=== PATIENT | female | born 1940 | race African-American/Black ===

== ENCOUNTER 2018-01-18 21:16 | Inpatient (IN) | payer MEDICARE ==
[~2018-01-18 21:16] MED LIST: ISOVUE-370 76%-LOCM 1 ML ONE
[2018-01-18 22:32] LABS: #Lymphocytes 1.2 thou/uL (1.20-3.40); #Monocytes 0.9 thou/uL (0.11-0.59); #Neutrophils 7.9 thou/uL (1.40-6.50); %Eosinophils 0.2 % (0.0-10.0); %Lymphocytes 11.9 % (21.0-51.0); %Monocytes 9.1 % (0.0-10.0); %Neutrophils 78.8 % (42.0-75.0); Hemoglobin 14.3 g/dL (12.0-16.0); Mean Corpuscular HGB CONC 31.7 g/dL (32.0-36.0); Mean Corpuscular Hemoglobin 31.8 pg (27.0-31.0); Mean Platelet Volume 6.2 fL (7.4-10.4); Platelet Count 317 thou/uL (130-400); RBC Distribution Width 13.8 % (11.5-14.5); Red Blood Cell (RBC) Count 4.52 mill/uL (4.20-5.40); White Blood Cell (WBC) Count 10.1 thou/uL (4.8-10.8)
--- NOTE | 2018-01-18 22:39 | RAD ---
FRONTAL VIEW CHEST: Comparison: 01-10-16 History: Abdominal pain. FINDINGS: Prominence of cardiac silhouette and evidence of prior sternotomy again seen. Left sided pacing devic e remains in place. There is vascular calcification. No new consolidation or effusion. IMPRESSION: Stable chest. POS: [facility]
[2018-01-18 23:00] LABS: ALT (SGPT) 17 U/L (8-55); AST (SGOT) 17 U/L (5-34); Albumin 2.6 g/dL (3.4-4.8); Alkaline Phosphatase 87 U/L (40-150); BUN (Urea Nitrogen) 16 mg/dL (9.8-20.1); Bilirubin, Total 0.5 mg/dL (0.2-1.2); Calc. Creatinine Clearance 0 mL/min (70-130); Carbon Dioxide 26 mmol/L (23-31); Chloride 97 mmol/L (98-107); Estimated GFR-MDRD 6; Globulin 3.6 g/dL (2.4-3.5); Glucose 69 mg/dL (83-110); Lipase 39 U/L (8-78); Magnesium 1.1 mg/dL (1.6-2.6); Phosphorus 3.3 mg/dL (2.3-4.7); Protein, Total 6.2 g/dL (6.0-8.3); Sodium 137 mmol/L (136-145)
[2018-01-18 23:13] LABS: Anion Gap 17 mmol/L (10-20)
--- NOTE | 2018-01-18 23:58 | CT ---
CT ABDOMEN AND PELVIS WITH CONTRAST: Indication: Abdominal pain. Comparison: 01-07-15 FINDINGS: There is a peritoneal dialysis catheter in place with evidence of intraabdominal fluid and punctate a ir which may relate to the indwelling dialysis catheter. There is wall thickening of the esophagus at its visualized aspects. There is wall prominence of the right hemicolon which is moderately distende d and contains fecal material. Loops of ectatic small bowel are present. Air and fluid filled. No foc al hepatic or splenic lesion. The kidneys are atrophic with cyst formation. No adrenal mass. Punctate cyst formation at the pancreatic head/uncinate process region is grossly stable. Scattered vascular disease is present. No acute osseous abnormality. IMPRESSION: 1. Peritoneal dialysis catheter. There is mild ascites as well as punctate intraabdominal air which m ay relate to the indwelling catheter and associated treatments. Correlate clinically. 2. Wall prominence of the visualized esophagus as well as involving the moderately distended right he micolon. These findings could relate to an infectious or inflammatory etiology. The possibility of ne oplasm is not excluded. 3. Recommend appropriate flow up via endoscopic evaluation. 4. Nonspecific ectatic small bowel. POS: [facility]
[2018-01-19] MEDS ORDERED: Acetaminophen 325 MG TAB PO PRN (04:19)
[2018-01-19] MEDS ORDERED: Ondansetron ODT 4 MG TAB SL PRN (04:19)
[2018-01-19] MEDS ORDERED: Ondansetron HCl/PF 4 MG/2 ML Vial IVP PRN (04:19)
[2018-01-19] MEDS ORDERED: Gentamicin Sulfate 80 MG in Premix Bag 1 BAG IVPB SCH (04:30)
[2018-01-19] MEDS ORDERED: Vancomycin HCl 1 GM in Premix Bag 1 BAG IVPB SCH (04:30)
[2018-01-19] MEDS ORDERED: HYDROcodone/Acetaminophen 5/325 mg Tablet PO PRN (05:12)
[2018-01-19] MEDS ORDERED: hydrALAZINE 25 MG TAB PO PRN (05:12)
--- NOTE | 2018-01-19 06:35 | HP ---
PRIMARY CARE PHYSICIAN: Dr. Guerrier CHIEF COMPLAINT: Abdominal pain. HISTORY OF PRESENT ILLNESS: Ms. Talley is a pleasant 77-year-old female that has a history of end-st age renal disease on peritoneal dialysis. She also has a history of hypertension and coronary artery disease. She was in her usual state of health until about 3 weeks ago when she started having pain in her abdomen, which had been more or less intermittent. She also has been having chills off and on as well. She also notes off and on nausea, vomiting, and diarrhea and sometimes she will have up to 2-3 loose stools in a day. She noticed yesterday that the fluid from the dialysate was cloudy and f or this reason she was concerned. She called the PD nurse and they recommended that she come to the ER for evaluation. In the ER, she had a CT scan done which was essentially negative except for some prominence of the esophageal wall and given the cloudiness of the peritoneal fluid she is being admit juliana for possible bacterial peritonitis. Her dining chair seat cushion trimmer, Dr. Canales, has already been consulted and duarte s recommended empiric antibiotics including vancomycin and gentamicin after cultures were drawn from the dialysate. REVIEW OF SYSTEMS: CONSTITUTIONAL: There have been no fevers and she says she takes her temperature daily. She has had subjective chills, but no night sweats or weight loss. HEENT: No headaches, no dizziness, no visual changes, no sore throat, rhinorrhea, neck pain, no peyton opathy. PULMONARY: No hemoptysis, no cough, no wheezing. CARDIOVASCULAR: She denies any chest pain, no shortness of breath, no PND, no orthopnea. GASTROINTESTINAL: As the history of present illness. GENITOURINARY: No urinary frequency, hematuria, no hesitancy. NEUROLOGIC: No focal weakness, numbness, no seizures. PSYCHIATRIC: No symptoms of anxiety or depression. MUSCULOSKELETAL: No muscle pains, weakness or joint pains. PAST MEDICAL HISTORY: Significant for hypertension, end-stage renal disease on peritoneal dialysis, coronary artery disease, myalgia, breast cancer and osteoarthritis. ALLERGIES: LISINOPRIL. PAST SURGICAL HISTORY: She has had a right lumpectomy. She has had a bypass surgery as well as a pa cemaker placement, PD catheter placement, cholecystectomy, hysterectomy, colectomy, hernia repair and shoulder arthroscopy. SOCIAL HISTORY: She is single, has 3 children. She is a nonsmoker, nondrinker. CODE STATUS: Do not resuscitate. Her surrogate decision maker is her daughter, Merari Sims, a nd also a close friend, Gregory Matute. FAMILY HISTORY: Significant for breast cancer in her mother as well as hypertension in both parents. MEDICATIONS: Renvela 800 mg t.i.d., Crestor 10 mg daily, MiraLax 17 grams daily, omega 3 fatty acids 3 tablets daily, multivitamin once a day. Epogen 5000 units weekly, Plavix 75 mg daily, carvedilol 12.5 mg twice a day, aspirin 81 mg daily and allopurinol 100 mg daily. PHYSICAL EXAMINATION: GENERAL: She is alert and oriented. She appears to be in no acute distress. VITAL SIGNS: Temperature was 99.1, blood pressure 121/85, heart rate 97, respiratory rate of 18, O2 sats 98% on room air. HEENT: Pupils are equal, round, and reactive. Extraocular muscles are intact. Her sclerae are anic teric. Throat, no erythema, no exudates. NECK: No adenopathy, no bruits. LUNGS: Clear to auscultation. There is no wheezing, no rales. CARDIOVASCULAR: She had a normal S1, S2. I did not appreciate an S3 or S4. No murmurs, clicks or r ubs. ABDOMEN: Soft. There is some diffuse tenderness, but primarily in the umbilical area and left lower quadrant. There is no rebound or guarding. EXTREMITIES: There is trace pedal edema. NEUROLOGICALLY: Nonfocal. Her muscle strength is 5/5 in both her upper and lower extremities. Cran ial nerves are intact. SKIN/INTEGUMENT: There were no acute changes. No lesions. LABORATORY: She had a white blood cell count of 10.1, hemoglobin 14.3, hematocrit is 45.2, platelet count is 317. Sodium 137, potassium 3.0, chloride is 97, CO2 is 26, BUN 16, creatinine 8.1, glucose is 69. CT scan again was significant for prominence of the esophageal wall, etiology of which is nonspecific . ASSESSMENT AND PLAN: 1. This is a pleasant 77-year-old female that presents with abdominal pain for the last 3 weeks. Sh e has a mild left shift on her CBC and cloudy dialysate fluids. She will be admitted for possible ba cterial peritonitis. After cultures have been obtained she will be started on IV vancomycin and gent amicin, which will need to be renally dosed. Her dining chair seat cushion trimmer, has been consulted. Regarding the ab normality seen on the CT scan. I discussed this with the patient and her daughter and friend who kaden pham at the bedside and they explained to me that she has had an endoscopy about 6 months or so ago look ing at this very issue. Therefore, we will not reevaluate this. 2. Hypertension. We will continue her usual medications for blood pressure as well as p.r.n. medica tions. 3. Coronary artery disease. This appears to be stable and again we will continue her usual medicati ons regarding this. 4. The patient will be placed on deep venous thrombosis prophylaxis.
[2018-01-19 06:46] LABS: BF Color Yellow; Body Fluid Source Ascites Body Fluid; Clarity Hazy (Clear); Tube # 1
[2018-01-19 06:47] LABS: WBC/NonHematic-Auto 7080 /cumm
[2018-01-19 06:49] LABS: BF RBC Count - Manual 93 /cumm
[2018-01-19 06:52] LABS: BF Segmented Neutrophils 87 %; Cell Count Non Hematic 8 %; Lymphocytes 5 %
[2018-01-19] MEDS: Carvedilol 25 MG TAB PO SCH ×2 (08:03→20:07)
[2018-01-19] MEDS: Ondansetron ODT 4 MG TAB PO PRN (08:03)
[2018-01-19] MEDS: Rosuvastatin 10 MG TAB PO SCH (08:04)
[2018-01-19] MEDS: Aspirin 81 mg Enteric Coated Tablet PO SCH (08:04)
[2018-01-19] MEDS: Clopidogrel Bisulfate 75 MG TAB PO SCH (08:04)
[2018-01-19] MEDS: Heparin 5,000 UNITS/ML VIAL SC SCH ×3 (08:04→20:03)
[2018-01-19] MEDS: Sevelamer Carbonate 800 MG TAB PO SCH ×3 (08:04→15:24)
[2018-01-19] MEDS: Cefepime 1 GM in Sodium Chloride 0.9% 100 ML IVPB SCH (11:49)
--- NOTE | 2018-01-19 12:00 | CON ---
DATE OF CONSULTATION: 01/19/2018 HISTORY OF PRESENT ILLNESS: Ms. Talley is a 77-year-old black female who was admitted for a possible peritonitis. Initial imaging showed no acute abdomen with this patient. Her initial PD fluid cell count was noted to be elevated. She has been empirically treated with gentamicin and vancomycin. PD fluid was also noted by the patient to be cloudy. No other complaints today except for some mild ab dominal pain. REVIEW OF SYSTEMS: Positive for abdominal pain, no fever or chills. No nausea, no vomiting. Appeti te decreased. Energy level is fair. No hematochezia, no melena, no hematemesis, no gross hematuria, no dysuria, no urinary frequency, no headache, no diplopia, no shortness of breath, no chest pain. MEDICATIONS: Aspirin 81 mg every day, carvedilol 12.5 mg p.o. b.i.d., cefepime 1 gram IV daily statu s post gentamicin 80 mg. Status post vancomycin 1 gram, heparin 5000 units subcu t.i.d., hydrocodone p.r.n., Crestor 10 mg tab at bedtime. PAST MEDICAL HISTORY: 1. History of end-stage renal disease, currently on maintenance peritoneal dialysis. 2. Hyperlipidemia. 3. Longstanding hypertension. 4. Coronary artery disease. 5. Breast cancer in remission. 6. Degenerative joint disease. 7. History of myalgia. PAST SURGICAL HISTORY: 1. Status post colon surgery. 2. Status post cholecystectomy. 3. Status post abdominal hysterectomy. 4. Status post PD catheter placement. 5. Status post colonoscopy. 6. Status post appendectomy. 7. Status post excision of multiple calcifications of the right breast. ALLERGIES: None. TRAUMA: None. IMMUNIZATIONS: Up to date. HOSPITALIZATIONS: Please see past medical history. SOCIAL HISTORY: The patient is , 3 children. 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 No smoking, no alcohol. Status post blood transfusion. Sedentary lifestyle. No IV drug abuse. FAMILY HISTORY: Positive family history of ESRD. PHYSICAL EXAMINATION: VITAL SIGNS: Blood pressure 110/63, heart rate 72, respiratory rate 16, temperature 98.1, pulse ox 9 5%. GENERAL: Awake, alert, sitting comfortable, not in overt distress. SKIN: Adequate turgor. HEENT: Pinkish conjunctivae, anicteric sclerae. NECK: No neck mass, no carotid bruits, no JVD. CHEST: No deformities. LUNGS: Clear breath sounds, no wheezing, no crackles. HEART: Normal sinus rhythm. No murmur, no gallops or rubs. ABDOMEN: Globular, soft, nontender, no masses. Positive for PD catheter. EXTREMITIES: No edema. LABORATORY: 01/18/2018 - White count 10.1, hemoglobin 14.3, sodium 137, potassium 3, chloride 97, ca rbon dioxide 26, BUN 16, creatinine 8.11. Gram stain PD fluid so far, currently Gram stain still currently pending. PD fluid cell count 7080. ASSESSMENT AND PLAN: 1. Acute peritonitis - empiric antibiotics. The patient is status post vancomycin and gentamicin. My plan is to change gentamicin to cefepime at 1 gram IV daily. In addition, we will continue vancom ycin. We will be rechecking her vancomycin level in a.m. 2. End-stage renal disease, she received a PD infusion of 2 liters last night. My plan is to resume her CCPD regimen starting tonight at 10 hours using a 2 liter fill volume using a 1.5% PD solution. My review of the last Kt/V suggests she is adequately dialyzed with the current dialysis regimen.
--- NOTE | 2018-01-19 14:53 | PDOC.PN ---
- Subjective Encounter Start Date: 01/19/18 Encounter Start Time: 11:00 Continues to have some abdominal discomfort that is tolerable. No other complaints. - Objective Resuscitation Status: Resuscitation Status DNR:Do Not Resuscitate Vital Signs & Weight: Vital Signs (12 hours) Temp Pulse Resp BP BP Pulse Ox 01/19/18 11:29 98.1 F 76 16 91/52 L 100 01/19/18 08:00 98.1 F 72 16 01/19/18 07:54 98.1 F 72 16 110/63 95 01/19/18 07:00 98.1 F 72 16 110/63 95 01/19/18 04:15 99.1 F 97 18 121/85 98 01/19/18 04:05 99.1 F 97 18 121/85 98 Weight Admit Weight 146 lb 5 oz Weight 146 lb 5 oz I&O: 01/18/18 01/19/18 01/20/18 06:59 06:59 06:59 Intake Total 60 Balance 60 Result Diagrams: 01/18/18 22:25 01/18/18 22:25 Phys Exam - Physical Examination Respiratory: no wheezing, no rales, clear to auscultation bilateral Cardiovascular: RRR, no significant murmur Gastrointestinal: soft Mildly, diffusely TTP Dx/Plan (1) Peritonitis associated with peritoneal dialysis Status: Acute (2) Renal failure Status: Acute - Plan * . Clear evidence of peritonitis with significant number of WBC's. On empiric, broad spectrum antibiotics. Await cultures. Nephrology following. Continue PD per nephrology.
[2018-01-19] MEDS ORDERED: Vancomycin HCl 1 GM in Premix Bag 1 BAG IVPB ONE (19:15)
[2018-01-20 05:53] LABS: Anion Gap 13 mmol/L (10-20); BUN (Urea Nitrogen) 20 mg/dL (9.8-20.1); Calc. Creatinine Clearance 6 mL/min (70-130); Calcium 7.1 mg/dL (7.8-10.44); Carbon Dioxide 25 mmol/L (23-31); Chloride 96 mmol/L (98-107); Estimated GFR-MDRD 6; Glucose 109 mg/dL (83-110); Sodium 131 mmol/L (136-145)
[2018-01-20 06:09] LABS: Potassium 2.8 mmol/L (3.5-5.1)
[2018-01-20 07:01] LABS: #Basophils 0.1 thou/uL (0.0-0.2); #Eosinphils 0.1 thou/uL (0.0-0.7); #Lymphocytes 1.6 thou/uL (1.20-3.40); #Monocytes 0.6 thou/uL (0.11-0.59); %Basophils 0.9 % (0.0-1.0); %Eosinophils 1.4 % (0.0-10.0); %Lymphocytes 24.9 % (21.0-51.0); %Neutrophils 62.8 % (42.0-75.0); Hemoglobin 11.4 g/dL (12.0-16.0); Mean Corpuscular HGB CONC 31.7 g/dL (32.0-36.0); Mean Corpuscular Hemoglobin 31.6 pg (27.0-31.0); Mean Corpuscular Volume 99.7 fl (81.0-99.0); Mean Platelet Volume 6.1 fL (7.4-10.4); Platelet Count 262 thou/uL (130-400); RBC Distribution Width 13.8 % (11.5-14.5); Red Blood Cell (RBC) Count 3.61 mill/uL (4.20-5.40); White Blood Cell (WBC) Count 6.3 thou/uL (4.8-10.8)
[2018-01-20 08:36] LABS: Vancomycin, Trough 12.5 ug/mL
[2018-01-20] MEDS: Rosuvastatin 10 MG TAB PO SCH (08:43)
[2018-01-20] MEDS: Heparin 5,000 UNITS/ML VIAL SC SCH ×3 (08:43→21:10)
[2018-01-20] MEDS: Sevelamer Carbonate 800 MG TAB PO SCH ×3 (08:43→17:49)
[2018-01-20] MEDS: Carvedilol 25 MG TAB PO SCH ×2 (08:43→21:10)
[2018-01-20] MEDS: Potassium Chloride 20 MEQ TAB PO SCH ×3 (08:44→21:08)
[2018-01-20] MEDS: Clopidogrel Bisulfate 75 MG TAB PO SCH (08:45)
[2018-01-20] MEDS: Aspirin 81 mg Enteric Coated Tablet PO SCH (08:45)
[2018-01-20] MEDS ORDERED: Vancomycin HCl 1 GM in Premix Bag 1 BAG IVPB SCH (09:15)
[2018-01-20] MEDS ORDERED: Vancomycin Sliding Scale 1 EACH FS ONE (09:15)
[2018-01-20] MEDS ORDERED: HOLD VANCOMYCIN FOR LEVEL >20 FS SCH (09:15)
[2018-01-20] MEDS ORDERED: Vancomycin HCl 750 MG in Sodium Chloride 0.9% 250 ML 250 ML IVPB SCH (09:15)
--- NOTE | 2018-01-20 10:12 | PRG ---
DATE OF SERVICE: 01/20/2018 SERVICE: Renal Medicine. SUBJECTIVE: Ms. Talley is a 77-year-old black female with ESRD - on maintenance peritoneal dialysis and was admitted for abdominal pain and cloudy PD fluid. She was empirically treated with IV vancomy abran and IV cefepime. Followup of the PD cultures showed a moderate amount of gram positive cocci. W e are waiting for sensitivities. Currently, she is still on IV cefepime and IV vancomycin. Please n ote, the patient's abdominal pain is still there, but this is slightly decreased. No complaints of chest pain or shortness of breath. She underwent peritoneal dialysis without any di fficulty last night. PHYSICAL EXAMINATION: VITAL SIGNS: Blood pressure 101/59, heart rate 69, respiratory rate 16, temperature 97.9, pulse oxim etry 99%. GENERAL: Awake, alert, comfortable, not in distress. SKIN: Adequate turgor. HEENT: She has pinkish conjunctivae, anicteric sclerae. NECK: No neck mass, no carotid bruits, no JVD. CHEST: No deformities. LUNGS: Clear breath sounds, no wheezing, no crackles. HEART: Normal sinus rhythm. No murmur, no gallops, no rubs. ABDOMEN: Globular, soft, nontender, no masses. She has a PD catheter in the abdomen. EXTREMITIES: No edema, no deformities. MEDICATIONS: Of 01/20/2018 was reviewed. LABORATORY DATA: Of 01/20/2018, white count 6.3, hemoglobin 11.4. PD fluid was with a white c ount of 7080. Cultures of the PD fluid showed moderate amount of gram positive cocci. ASSESSMENT AND PLAN: 1. Peritonitis - for the moment until the sensitivity comes out, we will continue with IV cefepime a nd IV vancomycin. Pharmacy consult has been done regarding dosing of her IV vancomycin. 2. End-stage renal disease, stable. Continue current CCPD regimen, tolerating said treatment. Due to the lower blood pressure, the patient is undergoing 1.5% PD solution to minimize ultrafiltration. I agree with current management. Recheck vancomycin level in a.m. as well as base met and CBC.
[2018-01-20] MEDS: Vancomycin HCl 500 MG in Sodium Chloride 0.9% 100 ML IVPB SCH (10:47)
[2018-01-20] MEDS: Cefepime 1 GM in Sodium Chloride 0.9% 100 ML IVPB SCH (12:55)
--- NOTE | 2018-01-20 13:48 | PDOC.PN ---
- Subjective Encounter Start Date: 01/20/18 Encounter Start Time: 12:30 Doing better overall. Less discomfort. Requests something for mild constipation. - Objective Vital Signs & Weight: Vital Signs (12 hours) Temp Pulse Resp BP Pulse Ox 01/20/18 12:00 98.1 F 71 16 138/78 98 01/20/18 10:58 97.9 F 69 16 99 I&O: 01/19/18 01/20/18 01/21/18 06:59 06:59 06:59 Intake Total 420 Balance 420 Result Diagrams: 01/20/18 04:58 01/20/18 04:58 Phys Exam - Physical Examination Constitutional: NAD Respiratory: no wheezing, no rales, no rhonchi, clear to auscultation bilateral Cardiovascular: RRR, no significant murmur, no rub Gastrointestinal: soft, non-tender, no distention, positive bowel sounds Musculoskeletal: no edema Psychiatric: normal affect Dx/Plan (1) Peritonitis associated with peritoneal dialysis Status: Acute Plan: Continue with Vanc for now. Growing GPC on culture. May be able to change once sensitivities are known. (2) Renal failure Status: Acute Plan: Continue with PD per Nephrology. (3) Constipation Code(s): K59.00 - CONSTIPATION, UNSPECIFIED Status: Acute Plan: Add Bisacodyl po prn. - Plan * As above.
[2018-01-20] MEDS: Bisacodyl 5 MG TAB PO PRN (15:01)
[2018-01-21] MEDS: Acetaminophen 325 MG TAB PO PRN (04:41)
[2018-01-21 05:44] LABS: #Eosinphils 0.1 thou/uL (0.0-0.7); #Lymphocytes 1.3 thou/uL (1.20-3.40); #Monocytes 0.6 thou/uL (0.11-0.59); #Neutrophils 3.5 thou/uL (1.40-6.50); %Basophils 0.3 % (0.0-1.0); %Eosinophils 2.4 % (0.0-10.0); %Lymphocytes 23.6 % (21.0-51.0); %Monocytes 11.5 % (0.0-10.0); %Neutrophils 62.2 % (42.0-75.0); Mean Corpuscular HGB CONC 31.8 g/dL (32.0-36.0); Mean Corpuscular Hemoglobin 31.7 pg (27.0-31.0); Mean Corpuscular Volume 99.7 fl (81.0-99.0); Mean Platelet Volume 6.3 fL (7.4-10.4); Platelet Count 272 thou/uL (130-400); RBC Distribution Width 13.7 % (11.5-14.5); Red Blood Cell (RBC) Count 3.46 mill/uL (4.20-5.40); White Blood Cell (WBC) Count 5.6 thou/uL (4.8-10.8)
[2018-01-21 05:57] LABS: Vancomycin, Random 17.3 ug/mL (See Comment)
[2018-01-21 06:00] LABS: Anion Gap 10 mmol/L (10-20); BUN (Urea Nitrogen) 22 mg/dL (9.8-20.1); Calc. Creatinine Clearance 6 mL/min (70-130); Calcium 7.4 mg/dL (7.8-10.44); Carbon Dioxide 31 mmol/L (23-31); Chloride 96 mmol/L (98-107); Estimated GFR-MDRD 6; Glucose 102 mg/dL (83-110); Potassium 3.3 mmol/L (3.5-5.1); Sodium 134 mmol/L (136-145)
[2018-01-21] MEDS ORDERED: Potassium Chloride 20 MEQ TAB PO SCH (07:30)
[2018-01-21] MEDS ORDERED: Sodium Chloride 0.9% 250 ML 250 ML IVPB SCH (08:05)
[2018-01-21 08:11] LABS: Vancomycin, Trough 16.2 ug/mL
[2018-01-21] MEDS: Carvedilol 25 MG TAB PO SCH (09:01)
[2018-01-21] MEDS: Aspirin 81 mg Enteric Coated Tablet PO SCH (09:01)
[2018-01-21] MEDS: Heparin 5,000 UNITS/ML VIAL SC SCH ×3 (09:03→20:24)
[2018-01-21] MEDS: Rosuvastatin 10 MG TAB PO SCH (09:03)
[2018-01-21] MEDS: Clopidogrel Bisulfate 75 MG TAB PO SCH (09:03)
[2018-01-21] MEDS: Sevelamer Carbonate 800 MG TAB PO SCH ×3 (09:03→18:23)
--- NOTE | 2018-01-21 09:50 | PRG ---
DATE OF SERVICE: 01/21/2018 SUBJECTIVE: Ms. Talley is a 77-year-old black female with ESRD and currently on peritoneal dialysis. She was admitted for abdominal pain. She was found to have gram-positive cocci peritonitis. Identification showed Staph coag negative. Currently, patient is on ceftriaxone and IV vancomycin. My plan is to discontinue the ceftriaxone and leave vancomycin. Earlier this morning she was hypotensive. She was given a bolus of 250 mL of normal saline. In addition, we plan to discontinue the patient's carvedilol. No other complaints, no chest pain, shortness of breath. OBJECTIVE: VITAL SIGNS: Blood pressure is 95/61 with heart rate of 60, respiratory rate 20 , temperature 97.9, pulse oximetry 95%. GENERAL: Awake, alert, comfortable. SKIN: Adequate turgor. HEENT: Pinkish conjunctivae, anicteric sclerae. NECK: No neck mass, no carotid bruits, no JVD. CHEST: No deformities. LUNGS: Clear breath sounds. HEART: Normal sinus rhythm. No murmurs, no gallops, no rubs. ABDOMEN: Globular, soft, and nontender. Positive for PD catheter. EXTREMITIES: No edema, no deformities. MEDICATIONS: Medications of 01/21/2018 was reviewed. LABORATORY DATA: Laboratories of 01/21/2018; sodium 134, potassium 3.3, chloride 96, carbon dioxide 31, BUN 22, creatinine 8.36, calcium 7.4. White count 5.6, hemoglobin 11. Vancomycin level 16.2. ASSESSMENT AND PLAN: 1. End-stage renal disease - stable. Continue current CCPD regimen. Tolerating current PD regimen. Please note that we were using 1.5% PD solution to minimize ultrafiltration. 2. Hypotension, p.r.n., normal saline. In addition, we will discontinue carvedilol. 3. Peritonitis- discontinue cefepime. Continue IV vancomycin with this patient. Pharmacy is redosing vancomycin. Agree with current management. [facility]
--- NOTE | 2018-01-21 11:00 | PDOC.PN ---
- Subjective Encounter Start Date: 01/21/18 Encounter Start Time: 09:30 Feels ok this morning. Had an episode of hypotension after HD this morning. She was sleeping and asymptomatic. Had BM yesterday. - Objective Vital Signs & Weight: Vital Signs (12 hours) Temp Pulse Resp BP Pulse Ox 01/21/18 08:17 97.9 F 60 20 95 01/21/18 08:00 97.9 F 76 16 95/61 97 01/21/18 00:00 97.9 F 60 20 100/57 L 98 Weight Weight 153 lb 0.01 oz I&O: 01/20/18 01/21/18 01/22/18 06:59 06:59 06:59 Intake Total 1570 Balance 1570 Result Diagrams: 01/21/18 05:20 01/21/18 05:20 Phys Exam - Physical Examination Respiratory: no wheezing, no rales, no rhonchi, clear to auscultation bilateral Cardiovascular: RRR, no significant murmur, no rub Gastrointestinal: soft, non-tender, no distention, positive bowel sounds Musculoskeletal: no edema Neurological: non-focal Psychiatric: normal affect Dx/Plan (1) Peritonitis associated with peritoneal dialysis Status: Acute Plan: Vanc continues. Cefepime discontinued. Growing Coag negative Staph. (2) Renal failure Status: Chronic Plan: Continue PD. Followed by Dr. Canales, Nephrology. (3) Constipation Code(s): K59.00 - CONSTIPATION, UNSPECIFIED Status: Resolved Plan: Continue PRN's. (4) Hypotension Status: Acute Plan: Brief episode of asymptomatic hypotension this morning following HD. Resolved with small fluid bolus. - Plan * Above.
[2018-01-21] MEDS: Vancomycin HCl 250 MG in Sodium Chloride 0.9% 100 ML IVPB SCH (11:08)
[2018-01-22 04:39] LABS: #Eosinphils 0.2 thou/uL (0.0-0.7); #Lymphocytes 1.6 thou/uL (1.20-3.40); #Monocytes 0.7 thou/uL (0.11-0.59); %Basophils 0.2 % (0.0-1.0); %Eosinophils 3.1 % (0.0-10.0); %Lymphocytes 29.3 % (21.0-51.0); %Monocytes 12.2 % (0.0-10.0); %Neutrophils 55.2 % (42.0-75.0); Hemoglobin 11.6 g/dL (12.0-16.0); Mean Corpuscular Hemoglobin 31.9 pg (27.0-31.0); Mean Corpuscular Volume 99.7 fl (81.0-99.0); Mean Platelet Volume 5.9 fL (7.4-10.4); Platelet Count 285 thou/uL (130-400); RBC Distribution Width 13.7 % (11.5-14.5); Red Blood Cell (RBC) Count 3.63 mill/uL (4.20-5.40); White Blood Cell (WBC) Count 5.4 thou/uL (4.8-10.8)
[2018-01-22 04:51] LABS: Anion Gap 11 mmol/L (10-20); BUN (Urea Nitrogen) 19 mg/dL (9.8-20.1); Calc. Creatinine Clearance 7 mL/min (70-130); Calcium 7.5 mg/dL (7.8-10.44); Carbon Dioxide 30 mmol/L (23-31); Chloride 99 mmol/L (98-107); Estimated GFR-MDRD 6; Glucose 116 mg/dL (83-110); Potassium 3.9 mmol/L (3.5-5.1); Sodium 136 mmol/L (136-145)
[2018-01-22] MEDS: Sevelamer Carbonate 800 MG TAB PO SCH ×3 (08:03→17:04)
[2018-01-22] MEDS: Aspirin 81 mg Enteric Coated Tablet PO SCH (08:03)
[2018-01-22] MEDS: Rosuvastatin 10 MG TAB PO SCH (08:03)
[2018-01-22] MEDS: Clopidogrel Bisulfate 75 MG TAB PO SCH (08:03)
[2018-01-22] MEDS: Heparin 5,000 UNITS/ML VIAL SC SCH ×3 (08:04→19:38)
--- NOTE | 2018-01-22 09:54 | PRG ---
DATE OF SERVICE: 01/22/2018 HISTORY OF PRESENT ILLNESS: Ms. Talley is a 77-year-old black female admitted for abdominal pain. S he was found to have Staph peritonitis. Currently on IV vancomycin. We are currently following her up also for her maintenance peritoneal dialysis. She is doing well with that. Her abdominal pain is slightly improved. Blood peritoneal fluid cultures showed coag negative Staphylococcus. Sensitivities are currently pen ding. OBJECTIVE: VITAL SIGNS: Blood pressure is 102/62, heart rate 70, respiratory rate 18, temperature 97.4, pulse o x 98%. GENERAL: Awake, alert, comfortable, not in distress. SKIN: Adequate turgor. HEENT: Pinkish conjunctivae, anicteric sclerae. NECK: No neck mass, no carotid bruits, no JVD. CHEST: No deformities. LUNGS: Clear breath sounds, no wheezing, no crackles. HEART: Normal sinus rhythm. No murmur, no gallops or rubs. ABDOMEN: Globular, soft, nontender, no masses. Positive for PD catheter. EXTREMITIES: No edema. MEDICATIONS: 01/22/2018 - Reviewed. LABORATORY: 01/22/2018 - White count 5.4, hemoglobin 11.6. 01/21/2018 - Vancomycin level 16.2. Sodium 136, potassium 3.9, chloride 99, carbon dioxide 30, BUN 1 9, creatinine 7.84, glucose 116, calcium 7.5. ASSESSMENT AND PLAN: 1. Peritonitis - Staph aureus - currently on IV vancomycin. Continue current management. 2. End-stage renal disease, stable. We will continue current continuous cycling peritoneal dialysis regimen. 3. Mild hyperkalemia, much improved with increase of potassium from the diet. 4. Hypotension, resolved with discontinuation of the Coreg. P.r.n. volume repletion. I agree with current management.
--- NOTE | 2018-01-22 12:00 | PDOC.PN ---
- Subjective Encounter Start Date: 01/22/18 Encounter Start Time: 11:57 No specific complaints. Does admit that she is still having some abdominal discomfort. Having normal BM's. - Objective Vital Signs & Weight: Vital Signs (12 hours) Temp Pulse Resp BP Pulse Ox 01/22/18 08:00 97.4 F L 70 18 102/62 98 01/22/18 05:00 98 F 78 18 124/68 96 01/22/18 00:15 97.9 F 72 16 126/71 98 Weight Weight 150 lb 12.739 oz I&O: 01/21/18 01/22/18 01/23/18 06:59 06:59 06:59 Intake Total 1570 250 Output Total 0 Balance 1570 250 Result Diagrams: 01/22/18 04:20 01/22/18 04:20 Phys Exam - Physical Examination Constitutional: NAD Neck: no nodes, no JVD Respiratory: no wheezing, no rales, no rhonchi, clear to auscultation bilateral Cardiovascular: RRR, no significant murmur Gastrointestinal: soft, no distention Only mild TTP diffusely Musculoskeletal: no edema Psychiatric: normal affect Dx/Plan (1) Peritonitis associated with peritoneal dialysis Status: Acute Plan: Growing Kocuria varians. Unable to get specific sensitivities. Therefore, unable to switch to oral option. Continue with IV Vanc. (2) Renal failure Status: Chronic Plan: Continue with PD. Followed by Nephrology. (3) Constipation Code(s): K59.00 - CONSTIPATION, UNSPECIFIED Status: Resolved (4) Hypotension Status: Resolved Plan: Had one episode of post PD hypotension that reponded to fluids. Nothing since. - Plan * Above.
[2018-01-23] MEDS: Sevelamer Carbonate 800 MG TAB PO SCH ×3 (07:41→17:27)
[2018-01-23] MEDS: Clopidogrel Bisulfate 75 MG TAB PO SCH (07:42)
[2018-01-23] MEDS: Aspirin 81 mg Enteric Coated Tablet PO SCH (07:42)
[2018-01-23] MEDS: Rosuvastatin 10 MG TAB PO SCH (07:42)
[2018-01-23] MEDS: Acetaminophen 325 MG TAB PO PRN (07:43)
[2018-01-23] MEDS: Heparin 5,000 UNITS/ML VIAL SC SCH ×3 (07:43→20:29)
[2018-01-23 08:09] VITALS: BMI 27.7
[2018-01-23 08:16] LABS: Vancomycin, Random 16.1 ug/mL (See Comment)
[2018-01-23] MEDS: Vancomycin HCl 250 MG in Sodium Chloride 0.9% 100 ML IVPB SCH (13:08)
[2018-01-23] MEDS: Bisacodyl 5 MG TAB PO PRN (14:17)
[2018-01-23] MEDS: Ondansetron ODT 4 MG TAB PO PRN (18:44)
--- NOTE | 2018-01-23 18:55 | PRG ---
DATE OF SERVICE: 01/23/2018 SUBJECTIVE: Ms. Talley is a 77-year-old black female with ESRD and currently on CCPD. She was admitted for abdominal pain due to Staph peritonitis. She is currently on IV vancomycin. He r PD fluid is clear. She is feeling much better. She has less abdominal pain. She was also noted to be on hypotensive side and for that reason, carvedilol has been discontinued. No new complaints today, no chest pain or shortness of breath. OBJECTIVE: VITAL SIGNS: Blood pressure 146/75, heart rate 65, respiratory rate 16, temperature 97.4, pulse ox 9 8%. GENERAL: Noted to be awake, alert, comfortable, not in distress. SKIN: Adequate turgor. HEENT: She has pinkish conjunctivae, anicteric sclerae. NECK: No neck mass, no carotid bruits, no JVD. CHEST: No deformities. LUNGS: Clear breath sounds, no wheezing, no crackles. HEART: Normal sinus rhythm. No murmur, no gallops, no rubs. ABDOMEN: Globular, soft, nontender, no masses. EXTREMITIES: No edema. Positive for PEG tube. MEDICATIONS: Medications of 01/23/2018 reviewed. LABORATORY DATA: Laboratories of 01/22/2018, hemoglobin 11.6. Sodium 136, potassium 3.9, chloride 9 9, carbon dioxide 30, BUN 90, creatinine 7.84. On 01/23/2018, vancomycin level 16.1. ASSESSMENT AND PLAN: 1. Staph peritonitis having clinically improving, less abdominal pain. PD fluid is clear. Continue IV vancomycin. Consider over the weekend converting her to intraperitoneal vancomycin. 2. End-stage renal disease, stable. Tolerating current continuous cycling peritoneal dialysis regim en. No changes will be made with her current peritoneal dialysis.
[2018-01-24] MEDS: Aspirin 81 mg Enteric Coated Tablet PO SCH (09:07)
[2018-01-24] MEDS: Sevelamer Carbonate 800 MG TAB PO SCH ×3 (09:07→16:48)
[2018-01-24] MEDS: Clopidogrel Bisulfate 75 MG TAB PO SCH (09:07)
[2018-01-24] MEDS: Rosuvastatin 10 MG TAB PO SCH (09:08)
[2018-01-24] MEDS: Heparin 5,000 UNITS/ML VIAL SC SCH ×3 (09:08→20:08)
[2018-01-24] MEDS: Bisacodyl 5 MG TAB PO PRN (09:13)
--- NOTE | 2018-01-24 12:30 | PRG ---
DATE OF SERVICE: 01/24/2018 SUBJECTIVE: Ms. Talley is a 77-year-old black female, who was admitted for abdominal pain secondary to Staph peritonitis. Currently on IV vancomycin. She is feeling better. The only concern was she is mildly distended with abdomen. She denies any pain with this. She denies any nausea or vomiting. The patient denies any chest pain or shortness of breath. OBJECTIVE: VITAL SIGNS: Blood pressure 129/87, heart rate 80, respiratory rate 16, temperature 97.9, pulse ox 9 6%. GENERAL EXAM: Awake, supine, comfortable, not in distress. SKIN: Adequate turgor. HEENT: Pinkish conjunctivae, anicteric sclerae. NECK: No neck mass, no carotid bruits, no JVD. CHEST: No deformities. LUNGS: Clear breath sounds, no wheezing, no crackles. HEART: Normal sinus rhythm. No murmur, no gallops, no rubs. ABDOMEN: Globular, soft, nontender, no masses. EXTREMITIES: No edema, no deformities. Medications of 01/24/2018 reviewed. LABORATORY DATA: Laboratories of 01/22/2018, hemoglobin 11.6, white count 5.4, BUN is 19, creatinine 7.84. 01/23/2018, vancomycin level 16.1. ASSESSMENT AND PLAN: 1. Staphylococcus peritonitis, clinically improving. Continue IV vancomycin. Once the patient is d ischarged as an outpatient, we will convert her to intraperitoneal vancomycin. 2. Abdominal distention - abdomen is globular, but soft and nontender. I feel that we need to adjus t the peritoneal dialysis regimen with this patient. We will use a 1.5 alternating with 2.5% periton eal dialysis solution to enhance fluid removal. 3. End-stage renal disease, stable. Continue current continuous cycling peritoneal dialysis regimen . As previously mentioned, we will use a 1.5 alternating with 2.5% peritoneal dialysis solution.
[2018-01-24] MEDS ORDERED: Bisacodyl 5 MG TAB PO SCH (22:15)
--- NOTE | 2018-01-24 22:56 | PDOC.PN ---
- Subjective Encounter Start Date: 01/24/18 Encounter Start Time: 09:30 Patient seen and examined for Peritonitis. Some nausea with abd fullness +. No other complaints. No overnight events - Objective MAR Reviewed: Yes Vital Signs & Weight: Vital Signs (12 hours) Temp Pulse Resp BP Pulse Ox 01/24/18 19:58 97.9 F 94 20 148/77 H 01/24/18 11:56 97.9 F 80 16 129/87 96 Weight Admit Weight 146 lb 5 oz Weight 143 lb 15.39 oz I&O: 01/23/18 01/24/18 01/25/18 06:59 06:59 06:59 Intake Total 900 1100 1210 Output Total 0 Balance 900 1100 1210 Result Diagrams: 01/25/18 03:39 01/25/18 03:39 Phys Exam - Physical Examination Constitutional: NAD Respiratory: no wheezing, no rhonchi Cardiovascular: RRR, no rub Gastrointestinal: soft, non-tender, positive bowel sounds distended, no rebound/guarding Musculoskeletal: no edema Neurological: moves all 4 limbs Dx/Plan (1) Peritonitis associated with peritoneal dialysis Status: Acute (2) Hypokalemia Code(s): E87.6 - HYPOKALEMIA Status: Acute (3) ESRD (end stage renal disease) on dialysis Code(s): N18.6 - END STAGE RENAL DISEASE; Z99.2 - DEPENDENCE ON RENAL DIALYSIS Status: Chronic (4) HTN (hypertension) Code(s): I10 - ESSENTIAL (PRIMARY) HYPERTENSION Status: Chronic - Plan continue antibiotics, out of bed/ambulate, DVT proph w/heparin, DVT proph w/SCDs I d/w Nephro - Dr Canales will setup outpt [facility] on Friday -: Cont Vancomycin for now -: AM labs -: Cont current meds as below -: Add MirjaneexDr Canales to adjust dialysate. Review of Systems - Review of Systems Respiratory: negative: Cough, Dry, Shortness of Breath, Hemoptysis, SOB with Excertion, Pleuritic Pain, Sputum, Wheezing Cardiovascular: negative: chest pain, palpitations, orthopnea, paroxysmal nocturnal dyspnea, edema, light headedness, other Gastrointestinal: Constipation. negative: Nausea, Vomiting, Abdominal Pain, Diarrhea, Melena, Hematochezia, Other - Medications/Allergies Allergies/Adverse Reactions: Allergies Allergy/AdvReac Type Severity Reaction Status Date / Time lisinopril Allergy Verified 01/19/18 04:16 Medications: Current Medications Acetaminophen (Tylenol) 650 mg PO Q4H PRN PRN Reason: Headache/Fever or Pain Last Admin: 01/23/18 07:43 Dose: 650 mg Hydrocodone Bitart/Acetaminophen ([place] 5/325) 1 tab PO Q4H PRN PRN Reason: Moderate Pain (4-6) Last Admin: 01/19/18 09:48 Dose: 1 tab Aspirin (Ecotrin) 81 mg PO DAILY [facility] Last Admin: 01/24/18 09:07 Dose: 81 mg Bisacodyl (Dulcolax) 5 mg PO DAILYPRN PRN PRN Reason: Constipation Last Admin: 01/24/18 09:13 Dose: 5 mg Bisacodyl (Dulcolax) 10 mg PO NOW [facility] Stop: 01/24/18 23:59 Clopidogrel Bisulfate (Plavix) 75 mg PO DAILY [facility] Last Admin: 01/24/18 09:07 Dose: 75 mg Heparin Sodium (Porcine) (Heparin) 5,000 units SC TID [facility] Last Admin: 01/24/18 20:08 Dose: 5,000 units Hydralazine HCl (Apresoline) 25 mg PO TID PRN PRN Reason: SBP Greater Than 170 Vancomycin HCl 1 gm/ Device 200 mls @ 200 mls/hr IVPB WILLCALL [facility] Vancomycin HCl 750 mg/ Sodium (Chloride) 250 mls @ 250 mls/hr [facility] Vancom[facility] HCl 500 mg/ Sodium (Chloride) 100 mls @ 100 mls/hr IVPB [facility] Last Admin: 01/20/18 10:47 Dose: 100 mls Vancomycin HCl 250 mg/ Sodium (Chloride) 100 mls @ 100 mls/hr IVPB [facility] Last Admin: 01/23/18 13:08 Dose: 100 mls Miscellaneous Medication (Pharmacy To Dose) 0 each IVPB ASDIR [facility] Hold Vancomycin For (Level >20) 0 each FS .AT DIALYSIS [facility] Ondansetron HCl (Zofran Odt) 4 mg PO Q6H PRN PRN Reason: Nausea/Vomiting Last Admin: 01/23/18 18:44 Dose: 4 mg Rosuvastatin Calcium (Crestor) 10 mg PO DAILY [facility] Last Admin: 01/24/18 09:08 Dose: 10 mg Sevelamer Carbonate (Renvela) 800 mg PO TID-WM [facility] Last Admin: 01/24/18 16:48 Dose: 800 mg Sodium Chloride (Flush - Normal Saline) 10 ml IVF Q12HR [facility] Last Admin: 01/24/18 20:09 Dose: 10 ml Sodium Chloride (Flush - Normal Saline) 10 ml IVF PRN PRN PRN Reason: Saline Flush
[2018-01-25 04:16] LABS: #Eosinphils 0.1 thou/uL (0.0-0.7); #Lymphocytes 1.7 thou/uL (1.20-3.40); #Monocytes 0.7 thou/uL (0.11-0.59); #Neutrophils 2.7 thou/uL (1.40-6.50); %Basophils 0.4 % (0.0-1.0); %Eosinophils 2.4 % (0.0-10.0); %Lymphocytes 32.5 % (21.0-51.0); %Monocytes 12.9 % (0.0-10.0); %Neutrophils 51.9 % (42.0-75.0); Hemoglobin 11.2 g/dL (12.0-16.0); Mean Corpuscular HGB CONC 32.1 g/dL (32.0-36.0); Mean Corpuscular Hemoglobin 31.8 pg (27.0-31.0); Mean Corpuscular Volume 99.3 fl (81.0-99.0); Mean Platelet Volume 6.1 fL (7.4-10.4); Platelet Count 252 thou/uL (130-400); RBC Distribution Width 13.5 % (11.5-14.5); White Blood Cell (WBC) Count 5.1 thou/uL (4.8-10.8)
[2018-01-25 04:33] LABS: BUN (Urea Nitrogen) 17 mg/dL (9.8-20.1); Calc. Creatinine Clearance 7 mL/min (70-130); Calcium 7.6 mg/dL (7.8-10.44); Carbon Dioxide 29 mmol/L (23-31); Chloride 98 mmol/L (98-107); Estimated GFR-MDRD 7; Glucose 112 mg/dL (83-110); Sodium 136 mmol/L (136-145)
[2018-01-25 04:35] LABS: Anion Gap 12 mmol/L (10-20)
[2018-01-25 04:36] LABS: Potassium 2.8 mmol/L (3.5-5.1)
[2018-01-25] MEDS ORDERED: Potassium Chloride 20 MEQ TAB PO SCH (05:15)
[2018-01-25 08:36] LABS: Vancomycin, Random 14.9 ug/mL (See Comment)
[2018-01-25] MEDS ORDERED: Polyethylene Glycol 3350 17 GM Packet PO SCH (09:00)
[2018-01-25] MEDS: Aspirin 81 mg Enteric Coated Tablet PO SCH (09:25)
[2018-01-25] MEDS: Clopidogrel Bisulfate 75 MG TAB PO SCH (09:25)
[2018-01-25] MEDS: Sevelamer Carbonate 800 MG TAB PO SCH ×2 (09:25→11:04)
[2018-01-25] MEDS: Rosuvastatin 10 MG TAB PO SCH (09:25)
[2018-01-25] MEDS: Bisacodyl 5 MG TAB PO PRN (09:26)
--- NOTE | 2018-01-25 10:10 | PRG ---
DATE OF SERVICE: 01/25/2018 RENAL MEDICINE SUBJECTIVE: Ms. Talley is a 77-year-old black female with ESRD - peritoneal dialysis, admitted for a bdominal pain secondary to a Staph peritonitis. She has been receiving IV vancomycin with clinical i mprovement. She does have mild abdominal distention. Denies any abdominal pain, no chest pain, shor tness of breath. OBJECTIVE: VITAL SIGNS: Blood pressure is 106/71, heart rate 102, respiratory rate 16, temperature 98.3, pulse ox 98%. GENERAL: Noted to be awake, alert, standing comfortable, not in distress. SKIN: Adequate turgor. HEENT: Pinkish conjunctivae, anicteric sclerae. NECK: No neck mass, no carotid bruits, no JVD. CHEST: No deformities. LUNGS: Clear breath sounds. HEART: Normal sinus rhythm. No murmur, no gallops, no rubs. ABDOMEN: Globular, soft, nontender, no masses. Positive for PD catheter. Positive for bowel sounds . EXTREMITIES: No edema, no deformities. MEDICATIONS: Of 01/25/2018 reviewed. LABORATORY DATA: 01/25/2018, white count 5.1, hemoglobin 11.2. Sodium 136, potassium 2.8, chloride 98, carbon dioxide 29, BUN 17, creatinine 7.22, glucose 112, calcium 7.6. ASSESSMENT AND PLAN: 1. Acute peritonitis Staphylococcus aureus - on intravenous vancomycin, clinically much improved. O n discharge, we will continue for another week of intraperitoneal vancomycin. 2. Hypokalemia, p.r.n. potassium replacement. 3. End-stage renal disease, stable. Tolerating current continuous cycling peritoneal dialysis regim en. We used a 2.5% alternating with 1.5% to enhance ultrafiltration with this patient night. Agree with current management.
[2018-01-25] MEDS: Vancomycin HCl 500 MG in Sodium Chloride 0.9% 100 ML IVPB SCH (11:04)
[2018-01-25 12:40] LABS: INR-International Normal Ratio 1.1; Prothrombin Time 13.9 SEC (12.0-14.7)
[2018-01-25] MEDS ORDERED: WARFARIN PO PRN (13:00)
[2018-01-25] MEDS ORDERED: Warfarin Sodium 5 MG TAB PO SCH ×3 (13:00→17:00)
--- NOTE | 2018-01-25 15:25 | DIS ---
DATE OF ADMISSION: 01/20/2018 DATE OF DISCHARGE: 01/25/2018 DISCHARGE DISPOSITION: Home. FOLLOWUP: 1. Follow up with Dr. Katy Guerrier in 1 week. 2. Follow up with Dr. Canales for peritoneal dialysis management. INPATIENT CONSULTANTS: 1. Dr. Canales, Nephrology. 2. Base met in 2 days as recommended. Primary care physician is advised to follow. 3. Coumadin follow up in 2 days is recommended. Primary care physician is advised to follow. The patient was seen and examined on the day of discharge. Denies any new complaints. No chest pain , shortness of breath, palpitations reported. BRIEF HOSPITAL COURSE: Patient is a 77-year-old female with end-stage renal disease on peritoneal di alysis, presented to the hospital with abdominal discomfort. Her workup was consistent with peritoni tis due to peritoneal dialysis. She was started on vancomycin. She has done well. She appears stab le for discharge and has been cleared by Nephrology. She had some electrolyte imbalances, which were replaced. A vancomycin level on the day of discharge was 14.9. Dr. Canales will start her on vancomyci n with peritoneal dialysis. Please note that on the day of discharge, it was found that patient takes warfarin at home. This was not started by the admitting physician. The patient states that she takes warfarin that has been re commended by her crop research scientist at [facility]. She will receive 5 mg warfarin dose prior to disch arge. INR today is 1.1. She was advised to resume her home warfarin regimen and to follow up in [facility] clinic in 2 days. FINAL DIAGNOSES: 1. Peritonitis associated with peritoneal dialysis. 2. Hypokalemia, replaced. 3. End-stage renal disease on peritoneal dialysis. 4. Hypertension. 5. Chronic anticoagulation (reason, unclear why patient is on anticoagulation.) The patient was cat ble to provide details. 6. History of breast cancer. 7. Degenerative joint disease. 8. Coronary artery disease. Plan of care was discussed with the patient in detail. She stated understanding. Total time coordinating the discharge of this patient was 33 minutes.
[2018-01-25 16:00] VITALS: BP 126/71; TEMP 97.5
[2018-01-25] MEDS ORDERED: Heparin 5,000 UNITS/ML VIAL SC SCH (21:00)
== END 2018-01-25 15:52 | disposition home or self-care (01) | DRG 919 ==
LOC: ERS 21:16 → T4-B 01-19 00:50 → OBSVTOIN 01-20 08:42
PROVIDERS: ADMIT Internal Medicine; ATTEND Internal Medicine
PROC: 3E1M39Z Irrigation of Peritoneal Cavity using Dialysate, Percutaneous Approach (ICD-10-PCS; principal; 2018-01-20)
DX: T85.71XA Infection and inflammatory reaction due to peritoneal dialysis catheter, initial encounter (principal); N18.6 End stage renal disease; K65.9 Peritonitis, unspecified; I12.0 Hypertensive chronic kidney disease with stage 5 chronic kidney disease or end stage renal disease; N17.9 Acute kidney failure, unspecified; B96.89 Other specified bacterial agents as the cause of diseases classified elsewhere; E87.6 Hypokalemia; M19.90 Unspecified osteoarthritis, unspecified site; I25.10 Atherosclerotic heart disease of native coronary artery without angina pectoris; B95.62 Methicillin resistant Staphylococcus aureus infection as the cause of diseases classified elsewhere; E78.5 Hyperlipidemia, unspecified; E87.5 Hyperkalemia; I95.9 Hypotension, unspecified; K59.00 Constipation, unspecified; Z99.2 Dependence on renal dialysis; Z79.01 Long term (current) use of anticoagulants; Z85.3 Personal history of malignant neoplasm of breast; Z90.49 Acquired absence of other specified parts of digestive tract; Z95.1 Presence of aortocoronary bypass graft; Z79.02 Long term (current) use of antithrombotics/antiplatelets; Z79.82 Long term (current) use of aspirin; Z95.0 Presence of cardiac pacemaker; Y84.1 Kidney dialysis as the cause of abnormal reaction of the patient, or of later complication, without mention of misadventure at the time of the procedure; Y82.8 Other medical devices associated with adverse incidents; Y92.009 Unspecified place in unspecified non-institutional (private) residence as the place of occurrence of the external cause; Z66 Do not resuscitate
CPT/HCPCS: 36415; 71045; 74177; 80048; 80053; 80202; 83690; 83735; 84100; 85025; 85060; 85610; 87070; 87077; 87205; 88112; 88305; 89051; 90945; 93005; A4216; G0257; J0692; J1644; J3370; J7050; Q0162

== ENCOUNTER 2019-12-27 15:21 | Inpatient (IN) | payer MEDICARE ==
--- NOTE | 2019-12-27 15:58 | CT ---
CT BRAIN NONCONTRAST: DATE: 12/27/2019 HISTORY: 79-year-old female with dysarthria. This stroke alert level 2 protocol report was called by Dr. Middleton to Dr. Ramirez (who was answering the phone for Dr. Cortez) at 3:54 PM 12/27/2019 FINDINGS: There is no evidence of acute intra-axial or extra-axial hemorrhage. There is no midline shift or any other mass effect. There is no extra-axial fluid collection. There is no evidence of obstructive hydrocephalus. Calvarium is intact. There is diffuse brain parenchymal volume loss. There are low att enuation areas in the white matter. These are nonspecific, but in a patient of this age, they are probably chronic ischemic white matter changes due to microvascular atherosclerosis. IMPRESSION: 1) No acute intracranial findings. 2) involutional changes and chronic ischemic white matter changes.
[2019-12-27 16:06] LABS: INR-International Normal Ratio 1.7; Prothrombin Time 19.8 SEC (12.0-14.7)
[2019-12-27 16:14] LABS: Hemoglobin 8.6 g/dL (12.0-16.0); Mean Corpuscular HGB CONC 31.2 g/dL (32.0-36.0); Mean Corpuscular Hemoglobin 31.4 pg (27.0-31.0); Mean Platelet Volume 8.8 fL (7.4-10.4); Platelet Count 213 thou/uL (130-400); RBC Distribution Width 22.3 % (11.5-14.5); Red Blood Cell (RBC) Count 2.74 mill/uL (4.20-5.40); White Blood Cell (WBC) Count 25.3 thou/uL (4.8-10.8)
[2019-12-27 16:21] LABS: D-Dimer Test 6.9 *mcg/mL (0.27-0.43)
[2019-12-27 16:23] LABS: ALT (SGPT) 11 U/L (8-55); AST (SGOT) 19 U/L (5-34); Alkaline Phosphatase 214 U/L (40-110); Anion Gap 15 mmol/L (10-20); BUN (Urea Nitrogen) 29 mg/dL (9.8-20.1); Bilirubin, Total 0.8 mg/dL (0.2-1.2); CK (CPK) 19 U/L (29-168); Calc. Creatinine Clearance 0 mL/min (70-130); Calcium 9.5 mg/dL (7.8-10.44); Carbon Dioxide 30 mmol/L (23-31); Chloride 97 mmol/L (98-107); Estimated GFR-MDRD 9; Globulin 3.8 g/dL (2.4-3.5); Glucose 70 mg/dL (83-110); Lipase 310 U/L (8-78); Potassium 3.9 mmol/L (3.5-5.1); Protein, Total 5.8 g/dL (6.0-8.3); Sodium 138 mmol/L (136-145)
--- NOTE | 2019-12-27 16:34 | RAD ---
PORTABLE CHEST: History: Altered mental status. Comparison: 01-18-18 FINDINGS: Heart size is enlarged. There are post op sternotomy changes. A pacemaker is present. Right sided Hem oSplit catheter is noted. The lungs are clear of any infiltrative process. IMPRESSION: Cardiomegaly. No acute findings. POS: [facility]
[2019-12-27 16:39] LABS: Band 2 % (5-11); Hypersemented Neutrophil SLIGHT; Hypochromia SLIGHT = 6-15 cells (100X) (0-5/hpf); Lymphocytes 10 % (21-51); MDiff Complete? YES; Macrocytosis SLIGHT = 6-15 cells (100X) (0-5/hpf); Monocytes 8 % (0-10); Neutrophil 80 % (42-75); Ovalocytes SLIGHT = 2-5 cells (100X) (0-1/hpf); Platelet Morphology Comment Appears Adequate; Polychromasia SLIGHT = 2-3 cells (100X) (0-2/hpf); Target Cells SLIGHT = 2-5 cells (100X) (0-1/hpf); Vacuoles SLIGHT
[2019-12-27] MEDS ORDERED: Cefepime 2 GM VIAL ONE (16:59)
[2019-12-27] MEDS ORDERED: Vancomycin 1.5 GRAM/300 ML BAG 1.5 GM in Premix Bag 1 BAG IVPB SCH (17:15)
--- NOTE | 2019-12-27 17:42 | ULT ---
ULTRASOUND LEFT UPPER EXTREMITY VENOUS DOPPLER: Date: 12/27/2019 HISTORY: Edema and pain. COMPARISON: None. FINDINGS: FINDINGS: Real-time Stanford scale and color Doppler with spectral analysis of the left upper extremity venous syst em was performed. The internal jugular, subclavian, axillary, basilic, and brachial veins were interr ogated, as well as the cephalic vein. The deep veins in the left upper extremity are patent. There appears to be a hematoma adjacent to the brachial vein. Extensive soft tissue swelling in the superficial soft tissues and around the elbow. Nonocclusive thrombus in cephalic vein near the antecubital fossa. IMPRESSION: 1. Patent deep veins. 2. Nonocclusive thrombus of the superficial cephalic vein near the antecubital fossa. 3. Hematoma around the basilic vein may be from prior attempts at intravenous access. POS: HOME
[2019-12-27] MEDS ORDERED: Ondansetron ODT 4 MG TAB SL PRN (20:35)
[2019-12-27] MEDS ORDERED: Ondansetron PF 4 MG/2 ML Vial IVP PRN ×2 (20:35→21:23)
[2019-12-27] MEDS ORDERED: Acetaminophen 325 MG TAB PO PRN (21:16)
[2019-12-27] MEDS ORDERED: Senokot S 8.6-50 MG TAB PO PRN (21:16)
[2019-12-27] MEDS ORDERED: Bisacodyl 10 MG SUPP PR PRN (21:16)
[2019-12-27] MEDS ORDERED: Bisacodyl 5 MG TAB PO PRN (21:16)
[2019-12-27] MEDS ORDERED: Guaifenesin DM 100-10/5 ML UDCUP PO PRN (21:16)
[2019-12-27] MEDS ORDERED: Morphine 2 MG/ML SYRINGE SLOW IVP PRN (21:23)
[2019-12-27] MEDS ORDERED: Promethazine HCl 12.5 MG in Sodium Chloride 0.9% 50 ML IVPB PRN (21:23)
[2019-12-27] MEDS ORDERED: hydrALAZINE 20 MG/ML VIAL SLOW IVP PRN (21:23)
[2019-12-27] MEDS ORDERED: cloNIDine 0.1 MG TAB PO PRN (21:23)
--- NOTE | 2019-12-27 21:32 | PDOC.HHP ---
Hospitalist HPI - History of Present Illness Slurred speech History of Present Illness: Patient is a 79 year old female with PMH ESRD who presents to ED from [facility] for slurred speech, speech therapy had reported that speech was off, patient has history of CVA and TIA. On interview, patient complains of bilateral leg swelling and pain, is more altered or delirious than anything from what I can tell, no focal arm or leg weakness, she complains of abdominal pain as well no nausea/vomiting/hematemesis/hematochezia. She has history of ESRD, sees Dr Canales and has HD yesterday. she has a swollen L arm more than other extremities as well. Patient was discharged 12/22 to [facility] for peritonitis. There is no fever sweats chills nausea vomiting diarrhea chest pain chest pressure shortness of breath or diaphoresis. ED Course: VITAL SIGNS FriDecember 27, 2019 19:56 EL Jansen, [facility] BP: 168/96 Pulse: 78 Resp: 24 Temp: 97.6 (Oral) Pain: 0 O2 sat: 99 on (2L Oxygen) Time: 12/27/2019 19:56. Hospitalist ROS - Review of Systems Constitutional: denies: fever, chills, sweats, weakness, malaise, other Eyes: denies: pain, vision change, conjunctivae inflammation, eyelid inflammation, redness, other ENT: denies: ear pain, ear discharge, nose pain, nose discharge, nose congestion , mouth pain, mouth swelling, throat pain, throat swelling, other Respiratory: denies: cough, dry, shortness of breath, hemoptysis, SOB with excertion, pleuritic pain, sputum, wheezing, other Cardiovascular: denies: chest pain, palpitations, orthopnea, paroxysmal noc. dyspnea, edema, light headedness, other Gastrointestinal: denies: nausea, vomiting, abdominal pain, diarrhea, constipation, melena, hematochezia, other Genitourinary: denies: dysuria, frequency, incontinence, hematuria, retention, other Musculoskeletal: reports: arm pain (L arm), other (bilateral leg, L arm pain) Neurological: denies: weakness, numbness, incoordination, change in speech, confusion, seizures, other All other systems reviewed; all pertinent +/- noted in HPI/Subj Hospitalist History - Past Medical History Other Medical History: coronary artery disease, diverticulosis, pancreatitis, hyperlipidemia, history of malignancy, primary site breast, treated with surgery, osteoarthritis, polymyalgia rheumatica, end stage renal disease. - Past Surgical History Other Surgical History: colectomy, peritoneal dialysis shunt placement, Surgical history of coronary artery bypass graft surgery, three vessels, Surgical history of cholecystectomy , Surgical history of hernia repair, Surgical history of hysterectomy, Surgical history of mastectomy, of the right breast, Surgical history of orthopedic surgery, R rotator cuff. - Family History Family History: reports: no pertinent history - Social History Smoking Status: Never smoker Alcohol: reports: None Drugs: reports: none - Exam General Appearance: NAD, awake alert Eye: PERRL, anicteric sclera ENT: normocephalic atraumatic, no oropharyngeal lesions, moist mucosa Neck: supple, symmetric, no JVD, no thyromegaly, no lymphadenopathy, no carotid bruit Heart: RRR, no murmur, no gallops, no rubs, normal peripheral pulses Respiratory: CTAB, no wheezes, no rales, no ronchi, normal chest expansion, no tachypnea, normal percussion Gastrointestinal: soft, non-tender, non-distended, normal bowel sounds, no palpable masses, no hepatomegaly, no splenomegaly, no bruit Extremities: no cyanosis, no clubbing, no edema Extremities - other findings: L arm swelling, anasarca noted Skin: normal turgor, no lesions, no rashes Neurological: cranial nerve grossly intact, normal sensation to touch, no weakness, no focal deficits, no new deficit Musculoskeletal: normal tone, normal strength, no muscle wasting Psychiatric: normal affect, normal behavior, A&O x 3 Psychiatric - other findings: altered mental status, slurred speech Hospitalist Results - Labs Result Diagrams: 12/27/19 15:38 12/27/19 15:38 Lab results: WBC 25.3 thou/uL (4.8-10.8) H 12/27/19 15:38 Hgb 8.6 g/dL (12.0-16.0) L 12/27/19 15:38 Hct 27.5 % (36.0-47.0) L 12/27/19 15:38 MCV 100.0 fL (78.0-98.0) H 12/27/19 15:38 Plt Count 213 thou/uL (130-400) 12/27/19 15:38 Band Neuts % (Manual) 2 % (5-11) L 12/27/19 15:38 Sodium 138 mmol/L (136-145) 12/27/19 15:38 Potassium 3.9 mmol/L (3.5-5.1) 12/27/19 15:38 Chloride 97 mmol/L (98-107) L 12/27/19 15:38 Carbon Dioxide 30 mmol/L (23-31) 12/27/19 15:38 BUN 29 mg/dL (9.8-20.1) H 12/27/19 15:38 Creatinine 5.68 mg/dL (0.6-1.1) H 12/27/19 15:38 Glucose 70 mg/dL (83-110) L 12/27/19 15:38 Lactic Acid 1.2 mmol/L (0.5-2.2) 12/27/19 15:38 Calcium 9.5 mg/dL (7.8-10.44) 12/27/19 15:38 Total Bilirubin 0.8 mg/dL (0.2-1.2) 12/27/19 15:38 AST 19 U/L (5-34) 12/27/19 15:38 ALT 11 U/L (8-55) 12/27/19 15:38 Alkaline Phosphatase 214 U/L (40-110) H 12/27/19 15:38 Ammonia 16 umol/L (18-72) L 12/27/19 15:58 Creatine Kinase 19 U/L (29-168) L 12/27/19 15:38 Troponin I 0.013 ng/mL (< 0.028) 12/27/19 15:38 B-Natriuretic Peptide 1503.5 pg/mL (0-100) H 12/27/19 15:38 Serum Total Protein 5.8 g/dL (6.0-8.3) L 12/27/19 15:38 Albumin 2.0 g/dL (3.4-4.8) L 12/27/19 15:38 Lipase 310 U/L (8-78) H 12/27/19 15:38 Additional comment: US LUE w/ nonocclusive thrombus - EKG Interpretation EKG: Reviewed, AV paced, pulse 79 Hospitalist H&P A/P - Plan Plan: Patient is a 79 year old female with PMH coronary artery disease, diverticulosis , pancreatitis, hyperlipidemia, history of malignancy, primary site breast, treated with surgery, osteoarthritis, polymyalgia rheumatica, end stage renal disease admitted for: # L arm nonocclusive thrombus with swelling of affected arm - tricky, on coumadin chronically but subtherapeutic, unfortunately has hematoma in abdomina , hold anticoagulation for now and monitor clincially, would prefer to discuss with nephrology and day team in AM before initiating therapy which could exacerbate hematoma # intrabdominal hematoma - reported by radiology on prelimary read, hold anticoagulation for now and monitor hemoglobin, transfuse for hgb <7 - follow final radiology read of CT # sepsis due to unknown source - elevated WBC, will admit and send blood cultures and defer to nephrology for further workup, Dr Canales consulted, empiric vancomycin and cefepime started # altered mental status, slurred speech - appears more delirium than slurred speech of a focal neurologic defecit type. will monitor clinically for worsening neurologic symptoms. MRI would help but patient has pacemaker # ESRD - permcath, consutl Dr Canales for HD inpatient # history of CAD - no chest pain or STEMI, continue home medications # history of pancreatitis, elevated lipase - presentation not consistent with pancreatitis, follow final abdominal CT read # hisotry of breast cancer - recommend outpatient follow up # elevated D dimer - presentation not consitent with PE, more likely from the clots and hematoma noted on imaging
[2019-12-27] MEDS ORDERED: Dextrose 50% Abboject 50 ML SYRINGE SLOW IVP PRN (22:45)
[2019-12-27] MEDS ORDERED: Dextrose 5% in Water 1,000 ML IV PRN (22:45)
[2019-12-28] MEDS: HYDROcodone/Acetaminophen 5/325 mg Tablet PO PRN ×2 (02:48→10:28)
[2019-12-28 04:04] VITALS: BMI 28.1
[2019-12-28 05:39] LABS: INR-International Normal Ratio 1.8; Prothrombin Time 20.7 SEC (12.0-14.7)
[2019-12-28 05:41] LABS: Band 3 % (5-11); Hemoglobin 8.1 g/dL (12.0-16.0); Lymphocytes 5 % (21-51); MDiff Complete? YES; Mean Corpuscular HGB CONC 31.7 g/dL (32.0-36.0); Mean Corpuscular Hemoglobin 32.1 pg (27.0-31.0); Mean Platelet Volume 8.6 fL (7.4-10.4); Monocytes 7 % (0-10); Neutrophil 84 % (42-75); Platelet Count 194 thou/uL (130-400); Platelet Morphology Comment Appears Adequate; RBC Distribution Width 23.1 % (11.5-14.5); Reactive Lymphocytes 1 % (0-10); Red Blood Cell (RBC) Count 2.53 mill/uL (4.20-5.40); White Blood Cell (WBC) Count 20.9 thou/uL (4.8-10.8)
[2019-12-28 05:54] LABS: Anion Gap 13 mmol/L (10-20); BUN (Urea Nitrogen) 34 mg/dL (9.8-20.1); Calc. Creatinine Clearance 9 mL/min (70-130); Calcium 9.1 mg/dL (7.8-10.44); Carbon Dioxide 29 mmol/L (23-31); Chloride 99 mmol/L (98-107); Estimated GFR-MDRD 8; Glucose 93 mg/dL (83-110); Magnesium 2.4 mg/dL (1.6-2.6); Phosphorus 4.6 mg/dL (2.3-4.7); Potassium 3.7 mmol/L (3.5-5.1); Sodium 137 mmol/L (136-145)
--- NOTE | 2019-12-28 07:56 | CT ---
PRELIMINARY REPORT/[facility]/EMERGENCY AFTER HOURS PROCEDURE This report was discussed with Cheli Griffiths RN by Merari Vicente on December 28, 2019 01:15:00 C DT. Addendum electronically signed by Merari Vicente on December 28, 2019 1:16:18 AM CDT EXAM: CT Abdomen and Pelvis Without Intravenous Contrast CLINICAL HISTORY: Pt c/o generalized abdominal pain and abdominal distention. Recent peritoneal dialysis catheter remov al (unknown exact date). Pt is poor historian *No IV contrast due to low GFR TECHNIQUE: Axial computed tomography images of the abdomen and pelvis without intravenous contrast. CONTRAST: None. COMPARISON: CT\SR - CT ABDOMEN PELVIS W CON - 01/18/2018 11:16 PM CDT FINDINGS: LUNG BASES: New, pronounced, diffuse edematous state with small bilateral pleural effusions, diffuse body wall edema, and ascites. Cardiomegaly. LIVER: Unremarkable. GALLBLADDER AND BILE DUCTS: The gallbladder is surgically absent. PANCREAS: Unremarkable. SPLEEN: Unremarkable. ADRENAL GLANDS: Unremarkable. KIDNEYS, URETERS, AND BLADDER: Pronounced bilateral renal atrophy. STOMACH AND BOWEL: Moderate hematoma adjacent to the caudal aspect of the gastric antrum and pylorus and medial aspect of the duodenal C-loop measuring approximately 11.3 x 4.9 x 6.4 cm. Diverticulosis. Hiatal hernia. APPENDIX: No CT evidence for appendicitis. PERITONEUM: No free fluid. No free air. REPRODUCTIVE: Unremarkable as visualized. VASCULATURE: Atherosclerosis. ABDOMINAL WALL AND SOFT TISSUES: Unremarkable. BONES: No fracture or suspicious osseous abnormality. MISCELLANEOUS: The blood pool is hypodense with respect to myocardium, a finding which can be associa juliana with anemia. Pacemaker. IMPRESSION: 1. Moderate hematoma adjacent to the caudal aspect of the gastric antrum and pylorus and medial aspec t of the duodenal C-loop measuring approximately 11.3 x 4.9 x 6.4 cm. 2. New, pronounced, diffuse edematous state with small bilateral pleural effusions, diffuse body wall edema, and ascites. 3. Pronounced bilateral renal atrophy. 4. Atherosclerosis. 5. Cardiomegaly. 6. The blood pool is hypodense with respect to myocardium, a finding which can be associated with ane gregor. 7. Hiatal hernia. ELECTRONICALLY SIGNED BY: Tom Gutierrez MD December 28, 2019 1:09:02 AM CDT This report is intended for review by the ordering physician only, in accordance of law. If you recei ve this report in error, please call [facility] at [phone]. FINAL REPORT EMERGENT AFTER HOURS CT ABDOMEN AND PELVIS WITHOUT IV CONTRAST: HISTORY: Abdominal pain, sepsis. COMPARISON: 01/18/2018. IMPRESSION: 1. Small right pleural effusion and atelectasis right lung base. 2. Cardiomegaly with partial visualization of cardiac pacemaking leads. 3. Increased density collection inferior to the gastric antrum and medial to the duodenum. This is mo st compatible with a hemorrhage/hematoma with greatest axial dimension of 8.6 cm. Small focus of hemorrhage is also seen just inferior and lateral to the pylorus of the stomach. 4. Ascites and findings suggestive of anasarca. 5. Stable small bilateral kidneys. 6. Prominent atherosclerotic vascular calcifications. 7. Small hiatal hernia. Findings are in agreement with preliminary report by [facility]. Transcribed Date/Time: 12/28/2019 9:18 AM
[2019-12-28] MEDS ORDERED: Sevelamer Carbonate 800 MG TAB PO SCH (08:00)
[2019-12-28] MEDS ORDERED: Clopidogrel Bisulfate 75 MG TAB PO SCH (09:00)
[2019-12-28] MEDS ORDERED: Vancomycin 1 GM in Premix Bag 1 BAG IVPB SCH (09:00)
[2019-12-28] MEDS ORDERED: Heparin 5,000 UNITS/ML VIAL SC SCH (09:00)
[2019-12-28] MEDS ORDERED: Vancomycin HCl 750 MG in Sodium Chloride 0.9% 250 ML 250 ML IVPB SCH (09:00)
[2019-12-28] MEDS ORDERED: Vancomycin HCl 500 MG in Sodium Chloride 0.9% 100 ML IVPB SCH (09:00)
[2019-12-28] MEDS ORDERED: Vancomycin HCl 250 MG in Sodium Chloride 0.9% 100 ML IVPB SCH (09:00)
[2019-12-28] MEDS ORDERED: HOLD VANCOMYCIN FOR LEVEL >20 FS PRN (09:00)
[2019-12-28] MEDS ORDERED: Carvedilol 25 MG TAB PO SCH (09:00)
--- NOTE | 2019-12-28 09:59 | CON ---
DATE OF CONSULTATION: HISTORY OF PRESENT ILLNESS: Ms. Talley is a 79-year-old black female with ESRD, who was admitted for slurred speech and confusion. She was also noted to have the persistent leukocytosis and empirically being treated with IV antibiotics. Of interest, this patient was recently admitted at [facility] for a case of peritonitis. She received several weeks of IV antibiotics at that time. Her hospitalization has also been marred by development of C. diff colitis. The patient's PD catheter has been removed. A cuffed hemodialysis catheter has been placed on this patient. We are being consulted for management of her ESRD. Her last dialysis was Friday. I planned to do her regular dialysis today-Friday, , and Friday. REVIEW OF SYSTEMS: Positive for confusion. Positive for slurring of speech, ? of nausea. Decreased appetite. Decreased energy level. No headache. No diplopia. No abdominal pain. No hematochezia. No melena. No hematemesis. Positive for left arm swelling. MEDICATIONS: Currently on, 1. Tylenol 650 mg q.4 p.r.n. 2. [place] 5/325 q.4 p.r.n. 3. DuoNeb q.2 hours as needed. 4. Zyloprim 100 mg once a day. 5. Ecotrin 81 mg tablet once a day. 6. Carvedilol 12.5 mg p.o. b.i.d. 7. Cefepime 2 g IV every other day. 8. Pepcid 20 mg q.a.m. 9. Vancomycin p.r.n. 10. MiraLAX 17 g daily. 11. Crestor 10 mg at bedtime. 12. Renvela 800 mg p.o. t.i.d. with meals. PAST MEDICAL HISTORY: 1. Recent diagnosis of peritonitis and ESRD currently on backup hemodialysis. 2. Status post CVA. 3. Status post C. diff colitis, breast cancer in remission, coronary artery disease, DJD. PAST SURGICAL HISTORY: Status post PD catheter placement with subsequent removal, status post cuffed hemodialysis catheter placement, status post colonoscopy, status post appendectomy, status post local excision, multiple calcifications of the right breast, status post colon surgery, status post cholecystectomy, status post abdominal hysterectomy. ALLERGIES: NONE. TRAUMA: None. IMMUNIZATIONS: Up-to-date. HOSPITALIZATION: Please see past medical history. SOCIAL HISTORY: The patient lives in [place]. 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 No smoking. No alcohol intake. Status post blood transfusion, drug abuse. Education, high school. FAMILY HISTORY: Positive for a family history of ESRD. PHYSICAL EXAMINATION: VITAL SIGNS: Blood pressure 130/56, heart rate 83, respiratory rate 23, temperature 98, pulse ox 100%. GENERAL: Noted to be awake, confused, but not in overt distress. SKIN: Adequate turgor. HEENT: Pale conjunctivae. Anicteric sclerae. NECK: No neck mass. No carotid bruits. No JVD. CHEST: No deformities. LUNGS: Decreased breath sounds. HEART: Normal sinus rhythm. No murmur. No gallops. No rubs. ABDOMEN: Globular, soft, nontender. No masses. EXTREMITIES: No leg edema. Positive for left upper extremity edema. NEUROLOGICAL: The patient has a slight slurring of speech. She is somewhat confused. Moving all extremities. No tremors. No asterixis. LABORATORY DATA: Laboratories of December 28, 2019; white count 20.9, hemoglobin 8.1. Sodium 137, potassium 3.7, chloride 99, carbon dioxide 29, BUN 34, creatinine 5.97, calcium 9.1, phosphorus 4.6, magnesium 2.4. December 27, 2019; blood culture, no growth to date. IMAGING STUDIES: Chest x-ray, no overt CHF or infiltrates. CT scan of the brain, no acute intracranial abnormality. CT scan of the abdomen and pelvis shows a moderate hematoma adjacent to the caudal aspect of the gastric antrum and pylorus-this is chronic cardiomegaly. ASSESSMENT/PLAN: 1. Mental status change/slurring speech-most likely metabolic encephalopathy. Continue supportive care. CAT scan of the brain showed no acute intracranial abnormality. If neurological signs and symptoms are persistent, consider MRI of the brain. 2. End-stage renal disease. We will continue current Friday, , and Friday hemodialysis for at least 3 hours. Fluid removal only as tolerated. 3. Anemia. P.r.n. blood transfusion. Continue Epogen at 7500 units subcu every week. 4. Leukocytosis. Currently, the patient is on empiric antibiotics. Blood culture is negative so far. Overall, prognosis remains guarded. Job ID: [id number]
[2019-12-28] MEDS: Aspirin 81 mg Enteric Coated Tablet PO SCH (10:28)
[2019-12-28] MEDS: Famotidine 20 MG TAB PO SCH (10:28)
[2019-12-28] MEDS: Rosuvastatin 10 MG TAB PO SCH (10:30)
[2019-12-28] MEDS: Allopurinol 100 MG TAB PO SCH (10:31)
[2019-12-28] MEDS: Polyethylene Glycol 3350 17 GM Packet PO SCH (10:33)
--- NOTE | 2019-12-28 11:21 | PDOC.HOSPP ---
- Subjective Encounter Date: 12/28/19 Encounter Time: 09:45 Subjective: she is warm to touch, denies any belly pain, PD port on the right chest looks clean. wbc trending down, slightly. - Objective Vital Signs & Weight: Vital Signs (12 hours) Temp Pulse Resp BP Pulse Ox 12/28/19 08:00 98.0 F 83 23 H 130/56 L 100 12/28/19 04:00 98.1 F 79 20 118/56 L 99 12/28/19 00:00 98.3 F 79 24 H 132/61 100 Weight Weight 154 lb I&O: 12/27/19 12/28/19 12/29/19 06:59 06:59 06:59 Intake Total 300 Output Total 0 Balance 300 Result Diagrams: 12/28/19 05:23 12/28/19 05:23 Additional Labs: Accuchecks 12/28/19 12/28/19 12/28/19 08:05 04:55 00:03 POC Glucose 85 108 108 12/27/19 12/27/19 12/27/19 23:08 22:41 15:36 POC Glucose 47 L* 47 L* 71 Hospitalist ROS - Medication Medications: Active Medications Generic Name Dose Route Start Last Admin Trade Name Freq PRN Reason Stop Dose Admin Acetaminophen 650 mg 12/27/19 21:16 12/27/19 23:17 Tylenol PO 650 mg Q4H PRN Administration Headache/Fever/Mild Pain (1-3) Hydrocodone Bitart/Acetaminophen 1 tab 12/27/19 21:16 12/28/19 10:28 [place] 5/325 PO 1 tab Q4H PRN Administration Moderate Pain (4-6) Allopurinol 100 mg 12/28/19 09:00 12/28/19 10:31 Zyloprim PO 100 mg DAILY ANA PAULA Administration Aspirin 81 mg 12/28/19 09:00 12/28/19 10:28 Ecotrin PO 81 mg DAILY ANA PAULA Administration Carvedilol 12.5 mg 12/28/19 09:00 12/28/19 10:31 Coreg PO 12.5 mg BID ANA PAULA Administration Dextrose/Water 25 gm 12/27/19 22:45 12/27/19 23:15 Dextrose 50% SLOW IVP 25 gm PRN PRN Administration Hypoglycemia Famotidine 20 mg 12/28/19 09:00 12/28/19 10:28 Pepcid PO 20 mg QAM ANA PAULA Administration Polyethylene Glycol 17 gm 12/28/19 09:00 12/28/19 10:33 Miralax PO 17 gm DAILY ANA PAULA Administration Rosuvastatin Calcium 10 mg 12/28/19 09:00 12/28/19 10:30 Crestor PO 10 mg DAILY ANA PAULA Administration - Exam General Appearance: NAD, awake alert, ill appearing Eye: PERRL ENT: normocephalic atraumatic Neck: supple Heart: RRR Respiratory: CTAB, normal chest expansion Gastrointestinal: soft, normal bowel sounds Neurological: no focal deficits, speech deficit Hosp A/P - Plan 79 year old female with PMH coronary artery disease, diverticulosis, pancreatitis, hyperlipidemia, history of malignancy, primary site breast, treated with surgery, osteoarthritis, polymyalgia rheumatica, end stage renal disease admitted for: # L arm nonocclusive thrombus with swelling of affected arm with hx of breast cancer -- lymphaedema # intrabdominal hematoma - reported by radiology on prelimary read, hold anticoagulation for now and monitor hemoglobin, transfuse for hgb <7 - follow final radiology read of CT # sepsis due to unknown source - elevated WBC, will admit and send blood cultures and defer to nephrology for further workup, Dr Canales consulted, empiric vancomycin and cefepime started # Altered mental status, slurred speech - appears more delirium than slurred speech of a focal neurologic defecit type. will monitor clinically for worsening neurologic symptoms. MRI would help but patient has pacemaker # ESRD - permcath, consutl Dr Canales for HD inpatient # history of CAD - no chest pain or STEMI, continue home medications # history of pancreatitis, elevated lipase - presentation not consistent with pancreatitis, follow final abdominal CT read # hisotry of breast cancer - recommend outpatient follow up # elevated D dimer - presentation not consitent with PE, more likely from the clots and hematoma noted on imaging tried to call [facility] dum[facility] at [phone] -- busy dial.
[2019-12-28] MEDS ORDERED: EPOETIN ALFA-EPBX (ESRD) 4,000 UNIT/ML VIAL SC SCH (12:00)
[2019-12-28] MEDS ORDERED: Dextrose 5% in Water 1,000 ML IV PRN (16:44)
[2019-12-28] MEDS ORDERED: HumaLOG 300 UNITS/3 ML VIAL SC PRN (16:44)
[2019-12-28] MEDS ORDERED: Sodium Chloride 0.9% 250 ML IV SCH (16:45)
[2019-12-28] MEDS ORDERED: Warfarin Sodium 2.5 MG TAB PO SCH (17:00)
[2019-12-28] MEDS ORDERED: Sodium Chloride 0.9% 200 ML IVPB PRN (18:52)
[2019-12-28] MEDS ORDERED: Sodium Chloride 0.9% 250 ML IVPB PRN (19:03)
[2019-12-28] MEDS: Carvedilol 3.125 MG TAB PO SCH (22:06)
[2019-12-29 04:17] LABS: Prothrombin Time 22.8 sec (12.0-14.7)
[2019-12-29 04:35] LABS: Anion Gap 15 mmol/L (10-20); BUN (Urea Nitrogen) 22 mg/dL (9.8-20.1); Calc. Creatinine Clearance 13 mL/min (70-130); Carbon Dioxide 27 mmol/L (23-31); Chloride 100 mmol/L (98-107); Estimated GFR-MDRD 13; Glucose 67 mg/dL (83-110); Magnesium 2.2 mg/dL (1.6-2.6); Phosphorus 3.8 mg/dL (2.3-4.7); Sodium 138 mmol/L (136-145)
[2019-12-29 04:53] LABS: Band 7 % (5-11); Eosinophils 1 % (0-10); Hemoglobin 8.1 g/dL (12.0-16.0); Hypochromia SLIGHT = 6-15 cells (100X) (0-5/hpf); Lymphocytes 4 % (21-51); MDiff Complete? YES; Mean Corpuscular HGB CONC 29.6 g/dL (32.0-36.0); Mean Corpuscular Hemoglobin 30.9 pg (27.0-31.0); Mean Platelet Volume 9.2 fL (7.4-10.4); Monocytes 4 % (0-10); Neutrophil 84 % (42-75); Platelet Count 211 thou/uL (130-400); Platelet Morphology Comment Appears Adequate; RBC Distribution Width 24.2 % (11.5-14.5); Red Blood Cell (RBC) Count 2.63 mill/uL (4.20-5.40); Target Cells SLIGHT = 2-5 cells (100X) (0-1/hpf); White Blood Cell (WBC) Count 22.3 thou/uL (4.8-10.8)
[2019-12-29] MEDS: Cefepime 2 GM in Sodium Chloride 0.9% 100 ML IVPB SCH (07:51)
[2019-12-29] MEDS: Allopurinol 100 MG TAB PO SCH (07:59)
[2019-12-29] MEDS: Famotidine 20 MG TAB PO SCH (07:59)
[2019-12-29] MEDS: Aspirin 81 mg Enteric Coated Tablet PO SCH (07:59)
[2019-12-29] MEDS: Carvedilol 3.125 MG TAB PO SCH ×2 (07:59→22:05)
[2019-12-29] MEDS: Rosuvastatin 10 MG TAB PO SCH (07:59)
[2019-12-29] MEDS: Polyethylene Glycol 3350 17 GM Packet PO SCH (08:01)
[2019-12-29] MEDS: Dextrose 5 %-0.45 % NaCl 1,000 ML IV SCH ×2 (09:00→22:08)
--- NOTE | 2019-12-29 10:03 | PRG ---
DATE OF SERVICE: 12/29/2019 SUBJECTIVE: Ms. Talley is a 79-year-old black female with ESRD, was admitted for mental status change. She was noted to have persistent leukocytosis and is empirically being treated with IV antibiotics. CAT scan of the brain showed no acute intracranial abnormality. She has been transferred to ICU due to the persistent metabolic encephalopathy. The patient on exam looks obtunded and not following any commands. She underwent hemodialysis yesterday. OBJECTIVE: VITAL SIGNS: Blood pressure is 139/64, heart rate 69, respiratory rate 31, and O2 saturation 100%. GENERAL: Noted to be awake, obtunded, not following verbal commands. SKIN: Adequate turgor. HEENT: She has a slightly pale conjunctivae. Anicteric sclerae. NECK: No neck mass. No carotid bruits. No JVD. CHEST: No deformities. LUNGS: Clear breath sounds. HEART: Normal sinus rhythm. No murmurs, gallops, or rubs. ABDOMEN: Globular, soft, and nontender. No masses. EXTREMITIES: No edema. No deformities. MEDICATIONS: Medications of December 29, 2019, were reviewed. LABORATORY DATA: Laboratories of December 29, 2019; white count 22.3 and hemoglobin 8.1. Sodium 138, potassium 4, chloride 100, carbon dioxide 27, BUN 22, creatinine 4.08, phosphorus 3.8, calcium 9.0, and magnesium 2.2. ASSESSMENT AND PLAN: 1. Metabolic encephalopathy. Continue supportive care. If obtundation remains unimproved, consider an MRI of the brain without contrast. 2. End-stage renal disease, stable, continuing 3 times a week hemodialysis. Fluid removal only as tolerated by the patient. 3. Anemia. Currently, on Epogen - p.r.n. blood transfusion. 4. Leukocytosis - currently, on empiric IV antibiotics. Blood culture on December 27, 2019, so far shows a negative growth to date. Overall, prognosis remains guarded with this patient. Job ID: [id number]
--- NOTE | 2019-12-29 10:26 | CON ---
DATE OF CONSULTATION: 12/29/2019 REASON FOR CONSULTATION: IMCU placement. CONSULTING PHYSICIAN: Dr. Ware from the [facility]. HISTORY OF PRESENT ILLNESS: This is a 79-year-old female, who was admitted with confusion and slurred speech. I am not completely sure what her baseline status is. According to Dr. Canales's note, she was recently in [facility] with peritonitis and received IV antibiotics. Also had the complication of C difficile colitis. Previously, she had been on PD dialysis. The catheter was removed and she had a hemodialysis cuffed catheter placed in the IJ region. I cannot get her to interact with me at this time, although she is awake. PAST MEDICAL HISTORY: 1. End-stage renal disease, requiring hemodialysis. 2. Stroke. 3. C difficile colitis. 4. Breast cancer. 5. Coronary artery disease. 6. Osteoarthritis. PAST SURGICAL HISTORY: 1. PD catheter placement and removal. 2. Hemodialysis catheter placement. 3. Colonoscopy. 4. Appendectomy. 5. Colon surgery. 6. Cholecystectomy. 7. Abdominal hysterectomy. ALLERGIES: NONE. SOCIAL HISTORY: Lives in [place]. Does not smoke. Does not consume alcohol. Does not use illicit drugs. FAMILY MEDICAL HISTORY: Remarkable for end-stage renal disease. REVIEW OF SYSTEMS: Cannot be obtained secondary to her altered mental status. PHYSICAL EXAMINATION: VITAL SIGNS: Temperature 96.5, pulse 79, blood pressure 129/82, respiratory rate in the mid 20s, and O2 saturation 98%. GENERAL: The patient looks around, but does not answer my questions. HEENT: . NECK: No adenopathy or JVD. LUNGS: Clear. CARDIAC: S1 and S2. Regular. ABDOMEN: Large midline surgical scar. EXTREMITIES: Right IJ tunneled dialysis catheter. No cyanosis. No edema. LABORATORY DATA: White blood cell count 22.3, hematocrit 27.4, and platelet count 211. INR 2.0. Sodium 138, potassium 4, chloride 100, CO2 of 27, BUN 22, creatinine 4.1, and glucose 67. IMAGING DATA: Chest x-ray showed no acute findings. Abdominal CT showed a hematoma near the gastric antrum measuring 11 x 4 x 6 cm. She has diffuse body wall edema and ascites. Brain CT, no acute findings. ASSESSMENT: 1. Presumed sepsis. 2. Altered mental status. 3. Chronic renal failure. DISCUSSION: History suggests there is probably some abdominal process going on. RECOMMENDATIONS: 1. Agree with IV antibiotics. 2. Would have a low threshold for General Surgery or GI consultation for the abdominal situation. 3. We will follow with you. Job ID: [id number]
--- NOTE | 2019-12-29 13:00 | PDOC.HOSPP ---
- Subjective Encounter Date: 12/29/19 Encounter Time: 10:40 Subjective: pt still not talking much, only tracking, deep palpation -- has no noticeable pain. d/w charge nurse and nurse. will get reports from [facility] and [facility] as she was admitted there for peritonitis and lengthy abx coverage. wbcs still high, - Objective Vital Signs & Weight: Vital Signs (12 hours) Temp Pulse Ox 12/29/19 11:05 96.7 F L 12/29/19 08:00 97 12/29/19 07:01 96.5 F L 12/29/19 04:00 99.0 F Weight Admit Weight 154 lb Weight 154 lb Most Recent Monitor Data Heart Rate from ECG 82 NIBP 110/69 NIBP BP-Mean 82 Respiration from ECG 32 SpO2 100 I&O: 12/28/19 12/29/19 12/30/19 06:59 06:59 06:59 Intake Total 300 40 Output Total 0 Balance 300 40 Result Diagrams: 12/29/19 03:23 12/29/19 03:23 Additional Labs: Accuchecks 12/29/19 12/29/19 12/29/19 12:23 08:05 04:47 POC Glucose 64 L 72 91 12/29/19 12/28/19 12/28/19 00:02 19:26 16:20 POC Glucose 89 86 72 12/28/19 13:09 POC Glucose 96 Hospitalist ROS - Medication Medications: Active Medications Generic Name Dose Route Start Last Admin Trade Name Freq PRN Reason Stop Dose Admin Acetaminophen 650 mg 12/27/19 21:16 12/27/19 23:17 Tylenol PO 650 mg Q4H PRN Administration Headache/Fever/Mild Pain (1-3) Hydrocodone Bitart/Acetaminophen 1 tab 12/27/19 21:16 12/28/19 10:28 [place] 5/325 PO 1 tab Q4H PRN Administration Moderate Pain (4-6) Allopurinol 100 mg 12/28/19 09:00 12/29/19 07:59 Zyloprim PO Not Given DAILY [facility] Aspirin 81 mg 12/28/19 09:00 12/29/19 07:59 Ecotrin PO Not Given DAILY [facility] Carvedilol 3.125 mg 12/28/19 21:00 12/29/19 07:59 Coreg PO Not Given BID ANA PAULA Dextrose/Water 25 gm 12/27/19 22:45 12/27/19 23:15 Dextrose 50% SLOW IVP 25 gm PRN PRN Administration Hypoglycemia Epoetin Valdemar-epbx 7,500 unit 12/28/19 12:00 12/28/19 16:16 Retacrit SC 7,500 unit Q7D ANA PAULA Administration Famotidine 20 mg 12/28/19 09:00 12/29/19 07:59 Pepcid PO Not Given QAM ANA PAULA Cefepime HCl 2 gm/ Sodium 100 mls @ 200 mls/hr 12/29/19 09:00 12/29/19 07:51 Chloride IVPB 100 mls Q2DAYS ANA PAULA Administration Dextrose/Sodium Chloride 1,000 mls @ 75 mls/hr 12/29/19 09:00 12/29/19 09:00 D5 1/2 Ns IV 1,000 mls .[id number] ANA PAULA Administration Polyethylene Glycol 17 gm 12/28/19 09:00 12/29/19 08:01 Miralax PO Not Given DAILY ANA PAULA Rosuvastatin Calcium 10 mg 12/28/19 09:00 12/29/19 07:59 Crestor PO Not Given DAILY ANA PAULA Sodium Chloride 10 ml 12/28/19 09:00 12/29/19 07:59 Flush - Normal Saline IVF 10 ml Q12HR ANA PAULA Administration - Exam General Appearance: awake alert, ill appearing Eye: PERRL ENT: normocephalic atraumatic Neck: supple Heart: RRR Respiratory: CTAB, normal chest expansion Gastrointestinal: soft, normal bowel sounds, distended Neurological: no focal deficits Hosp A/P - Plan 79 year old female with PMH coronary artery disease, diverticulosis, pancreatitis, hyperlipidemia, history of malignancy, primary site breast, treated with surgery, osteoarthritis, polymyalgia rheumatica, end stage renal disease admitted for: # L arm nonocclusive thrombus with swelling of affected arm with hx of breast cancer -- lymphaedema # intrabdominal hematoma - reported by radiology on prelimary read, hold anticoagulation for now and monitor hemoglobin, transfuse for hgb <7 - follow final radiology read of CT # sepsis due to unknown source - elevated WBC, will admit and send blood cultures and defer to nephrology for further workup, Dr Canales consulted, empiric vancomycin and cefepime started # Altered mental status, slurred speech - appears more delirium than slurred speech of a focal neurologic defecit type. will monitor clinically for worsening neurologic symptoms. MRI would help but patient has pacemaker # ESRD - humberto consutl Dr Canales for HD inpatient # history of CAD - no chest pain or STEMI, continue home medications # history of pancreatitis, elevated lipase - presentation not consistent with pancreatitis, follow final abdominal CT read # hisotry of breast cancer - recommend outpatient follow up # elevated D dimer - presentation not consitent with PE, more likely from the clots and hematoma noted on imaging tried to call harris dumont at [phone] -- busy dial. 6th will get reports from [facility] and [facility] as she was admitted there for peritonitis and lengthy abx coverage. Persistent leukocytosis --bl adalid -- neg so far --vanc + cefepime --as still high wbcs, ID consulted metabolic encephalopathy --unlikely any other source for her mentation -repeat CT head tomorr -EEG today -appreciate help from neuro. Hypotension -w ith change in BP cuff, BP looks acceptable can transfer back to the floor.
--- NOTE | 2019-12-29 13:36 | CON ---
DATE OF CONSULTATION: 12/29/2019 HISTORY OF PRESENT ILLNESS: Ms. Dianna Talley is a 79-year-old female with past medical history significant for end-stage renal disease, admitted to [facility] on 12/27/2019 from [facility] for slurred speech. She does have history of CVA and TIA. At the time of admission, she also had abdominal pain and bilateral leg swelling with pain. She was admitted for further workup. However , yesterday, she became obtunded and unresponsive. She is alert and oriented at baseline. Neurology was consulted for acute change in mental status. Head CT was done, which did not reveal any acute intracranial pathology. History obtained by review of records. REVIEW OF SYSTEMS: Review of systems is unobtainable due to mental status. - Past Medical History Other Medical History: coronary artery disease, diverticulosis, pancreatitis, hyperlipidemia, history of malignancy, primary site breast, treated with surgery, osteoarthritis, polymyalgia rheumatica, end stage renal disease. - Past Surgical History Other Surgical History: colectomy, peritoneal dialysis shunt placement, Surgical history of coronary artery bypass graft surgery, three vessels, Surgical history of cholecystectomy , Surgical history of hernia repair, Surgical history of hysterectomy, Surgical history of mastectomy, of the right breast, Surgical history of orthopedic surgery, R rotator cuff. - Family History Family History: reports: no pertinent history SOCIAL HISTORY: The patient lives at [facility]. No smoking, alcohol, illegal drug use. - Objective Vital Signs & Weight: Vital Signs (12 hours) Temp Pulse Ox 12/29/19 11:05 96.7 F L 12/29/19 08:00 97 12/29/19 07:01 96.5 F L 12/29/19 04:00 99.0 F Weight Admit Weight 154 lb Weight 154 lb Most Recent Monitor Data Heart Rate from ECG 82 NIBP 110/69 NIBP BP-Mean 82 Respiration from ECG 32 SpO2 100 I&O: 12/28/19 12/29/19 12/30/19 06:59 06:59 06:59 Intake Total 300 40 Output Total 0 Balance 300 40 Result Diagrams: 12/29/19 03:23 12/29/19 03:23 Additional Labs: Accuchecks 12/29/19 12/29/19 12/29/19 12:23 08:05 04:47 POC Glucose 64 L 72 91 12/29/19 12/28/19 12/28/19 00:02 19:26 16:20 POC Glucose 89 86 72 12/28/19 13:09 POC Glucose 96 Hospitalist ROS - Medication Medications: Active Medications Generic Name Dose Route Start Last Admin Trade Name Freq PRN Reason Stop Dose Admin Acetaminophen 650 mg 12/27/19 21:16 12/27/19 23:17 Tylenol PO 650 mg Q4H PRN Administration Headache/Fever/Mild Pain (1-3) Hydrocodone Bitart/Acetaminophen 1 tab 12/27/19 21:16 12/28/19 10:28 [place] 5/325 PO 1 tab Q4H PRN Administration Moderate Pain (4-6) Allopurinol 100 mg 12/28/19 09:00 12/29/19 07:59 Zyloprim PO Not Given DAILY [facility] Aspirin 81 mg 12/28/19 09:00 12/29/19 07:59 Ecotrin PO Not Given DAILY [facility] Carvedilol 3.125 mg 12/28/19 21:00 12/29/19 07:59 Coreg PO Not Given BID [facility] Dextrose/Water 25 gm 12/27/19 22:45 12/27/19 23:15 Dextrose 50% SLOW IVP 25 gm PRN PRN Administration Hypoglycemia Epoetin Valdemar-epbx 7,500 unit 12/28/19 12:00 12/28/19 16:16 Retacrit SC 7,500 unit Q7D ANA PAULA Administration Famotidine 20 mg 12/28/19 09:00 12/29/19 07:59 Pepcid PO Not Given QAM [facility] Cefepime HCl 2 gm/ Sodium 100 mls @ 200 mls/hr 12/29/19 09:00 12/29/19 07:51 Chloride IVPB 100 mls Q2DAYS ANA PAULA Administration Dextrose/Sodium Chloride 1,000 mls @ 75 mls/hr 12/29/19 09:00 12/29/19 09:00 D5 1/2 Ns IV 1,000 mls .[id number] ANA PAULA Administration Polyethylene Glycol 17 gm 12/28/19 09:00 12/29/19 08:01 Miralax PO Not Given DAILY [facility] Rosuvastatin Calcium 10 mg 12/28/19 09:00 12/29/19 07:59 Crestor PO Not Given DAILY [facility] Sodium Chloride 10 ml 12/28/19 09:00 12/29/19 07:59 Flush - Normal Saline IVF 10 ml Q12HR ANA PAULA Administration - Exam General Appearance: Somnolent, non verbal Eye: PERRL, anicteric sclera ENT: normocephalic atraumatic, no oropharyngeal lesions, moist mucosa Neck: supple, symmetric, no JVD, no thyromegaly, no lymphadenopathy, no carotid bruit Heart: RRR, no murmur, no gallops, no rubs, normal peripheral pulses Respiratory: CTAB, no wheezes, no rales, no ronchi, normal chest expansion, no tachypnea, normal percussion Gastrointestinal: soft, non-tender, non-distended, normal bowel sounds, no palpable masses, no hepatomegaly, no splenomegaly, no bruit Extremities: no cyanosis, no clubbing, no edema Extremities - other findings: L arm swelling, anasarca noted Skin: normal turgor, no lesions, no rashes Neurological: cranial nerve grossly intact, normal sensation to touch, no weakness, no focal deficits, no new deficit Musculoskeletal: normal tone, normal strength, no muscle wasting NEUROLOGICAL: The patient is somnolent, lethargic. She does not follow commands or maintain any eye contact. Cranial nerves, pupils are equal and reactive to light. No gaze preference. Doll's eye intact. Corneals positive. Gap positive. Motor, muscle tone, and bulk are normal. Minimal withdrawal of all 4 extremities to nailbed pressure. Sensory, minimal withdrawal of all 4 extremities to nailbed pressure. Cerebellar could not be assessed secondary to the patient's mental condition. Gait could not be tested. Reflexes intact. DATA REVIEWED: I reviewed the CT scan, which did not reveal any acute intracranial pathology. ASSESSMENT AND PLAN: Ms. Dianna Talley is a 79-year-old female with multiple comorbidities, consulted for acute-onset altered mental status. 1. Recommend MRI of brain, but the patient has pacemaker, so consider repeating a head CT to rule out acute intracranial event. 2. Recommend EEG to rule out underlying subclinical seizures. 3. Neuro checks every 4 hours. 4. Continue home medications. 5. Continue medical management per primary team. 6. Further recommendation depends on the results of the testing. We will continue to follow. Thank you for the consult. Job ID: [id number] [facility]
--- NOTE | 2019-12-29 15:42 | EEG ---
Referring Physician: Raffaele ABAD EEG # [id number] TEST TYPE: EXTENDED CONTINUOUS VIDEO EEG RECORDING REPORT: This EEG was performed using 24 channel Flamsred video digital EEG machine with 24 disc electrodes. This was an extended 2 hour 9 minutes of inpatient video EEG recording. Digital analysis of the EEG was done for spike and seizure detection which revealed no abnormalities. BACKGROUND: The posterior background rhythm was not observed. HYPERVENTILATION: Was not performed. PHOTIC STIMULATION: No significant response seen with photic stimulation. SLEEP: No stage change was observed. EEG DIAGNOSIS: 1.) Generalized irregular theta and delta activity with superimposed beta and superimposed muscle artifact 2.) Absence of posterior background rhythm. CLINICAL INTERPRETATION: THIS EEG IS CONSISTENT WITH MODERATE GENERALIZED NONSPECIFIC CEREBRAL DYSFUNCTION. NO ICTAL OR INTERICTAL EPILEPTIFORM ABNORMALITIES SEEN DURING THE RECORDING. Housekeeper/Laundry Assistant: DARINEL Manager Audit: EEG.[email or web address] BROWN
[2019-12-29] MEDS ORDERED: Warfarin Sodium 5 MG TAB PO SCH (17:00)
[2019-12-29] MEDS ORDERED: Sodium Chloride 0.9% 250 ML 250 ML IVPB SCH (20:15)
[2019-12-29 20:32] LABS: Lactic Acid 1.8 mmol/L (0.5-2.2)
[2019-12-29] MEDS ORDERED: Sodium Chloride 0.9% 250 ML IVPB SCH (21:00)
[2019-12-29] MEDS ORDERED: Acetaminophen 650 MG Suppository PR PRN (22:25)
--- NOTE | 2019-12-30 00:36 | CON ---
DATE OF CONSULTATION: 12/29/2019 REASON FOR CONSULTATION: Neutrophilia. HISTORY OF PRESENT ILLNESS: A 79-year-old who has a history of coronary artery disease, pancreatitis, hyperlipidemia, and breast cancer in remission as well as end-stage renal disease, previously on peritoneal dialysis, but now on hemodialysis with a HemoSplit catheter in the right IJ position, who [facility] because of change in her speech pattern. The patient had a slurred speech and described swelling in the left arm. No fever or chills. No vomiting or diarrhea. No reported pain. PHYSICAL EXAMINATION: VITAL SIGNS: Initial findings included a temperature of 97.8, blood pressure 140/80, pulse 94, respiration is counted at 15 and then 26, O2 saturations were 99, 2 L nasal cannula. GENERAL: The patient appeared in no distress, and she was described as alert, oriented to person, place, and time. The breath sounds were described as clear and the heart examination described as normal as well. ABDOMEN: Described as nontender. EXTREMITIES: She had swelling of the left upper extremity by the description in the note. INITIAL LABORATORY DATA: With a white cell count of 25,000, hemoglobin 8.6, platelets 213, with 80% neutrophils, 10% lymphocytes. INR was 1.7. The initial chemistry results, sodium 138, creatinine 5.68 and transaminases and bilirubin normal, alkaline phosphatase 214 with albumin of 2.0 and lipase 310. BNP was 1500 on arrival. INITIAL IMAGING PROCEDURES: Included an abdomen and pelvis CT scan with hematoma adjacent to the caudal aspect of the gastric antrum and pylorus, medial aspect of the duodenal C loop measuring 11 x 4 x 6 cm and diffuse anasarca with bilateral pleural effusions edema in the subcutaneous tissues and ascites, cardiomegaly noted. Brain CT with no acute intracranial findings. Chest x-ray with cardiomegaly, but no infiltrates were described. She had a vascular ultrasound and there was evidence of thrombus in the superficial cephalic vein, so this was not deep vein thrombosis, but a superficial vein thrombosis. Currently, Ms. Talley is awake. She does not establish eye contact other than very briefly when I call her name. She is not able to interact with examiner, does not answer questions. Does not follow commands and according to the nurse's report has not had diarrhea. PAST MEDICAL HISTORY: The patient has a history of breast cancer in remission and end-stage renal disease, unclear reason for her renal failure. She has had been on peritoneal dialysis in the past, had 2 episodes of CAPD associated peritonitis and was converted to HemoSplit dialysis catheter hemodialysis. PAST MEDICAL HISTORY: Also includes coronary disease, pancreatitis, hyperlipidemia, osteoarthritis, polymyalgia rheumatica. PAST SURGICAL HISTORY: Colectomy, partial, peritoneal dialysis, shunt placement and removal, coronary bypass graft surgery, cholecystectomy, hysterectomy, mastectomy, right breast. FAMILY HISTORY: Noncontributory. SOCIAL HISTORY: Never smoker. She is a resident at the [place]. No other significant findings on social history. ALLERGY HISTORY: Celecoxib and lisinopril. CURRENT MEDICATIONS: 1. Rangely. 2. DuoNeb. 3. Zyloprim. 4. Ecotrin. 5. Dulcolax. 6. Coreg. 7. Cefepime. 8. Retacrit. 9. Pepcid. 10. Robitussin. 11. Apresoline. 12. Insulin. 13. Promethazine. 14. Senokot. 15. Vancomycin sliding scale. PHYSICAL EXAMINATION: VITAL SIGNS: T-max 98.6, blood pressure 108/62, pulse 77, respirations 25, now they are 36 almost 40 per minute, O2 saturation 98. SKIN: No areas of skin breakdown. The patient has a HemoSplit catheter in the right IJ position and no lymphadenopathy. Some periorbital edema. She has a left gaze preference, but no nystagmus. Pupils are constricted. Oral cavity is dry, still few teeth in place. NECK: No jugular vein distention is noted. LUNGS: Diminished breath sounds throughout the lung sifuentes. Very limited respiratory excursions noted. No wheezing. Few crackles at the bases. CARDIOVASCULAR: S1-S2, diminished heart sounds. No obvious murmurs. ABDOMEN: Somewhat distended. Positive fluid wave suggestive of ascites. No bladder distention. She has anasarca with edema throughout the subcutaneous tissues of all four limbs. She has 3 to 4+ edema in lower extremities. I could not elicit any spontaneous movements in the extremities. NEUROLOGIC: She is awake, but does not interact with the examiner, does not answer questions or follow commands. LABORATORY DATA: The latest chemistry, sodium 138, potassium 4, creatinine 4.08 , magnesium 2.2 and INR is 2.056. I do not see Coumadin prescribed in her orders. She had been on warfarin up until today as a matter of fact, so that explains the elevated INR. The white cell count was started at 25,000, now it is at 22.3, hemoglobin 8.1, MCV 104, platelets 211 with 84% neutrophils, 7% bands. The previous white cell count within the normal range was at the previous admission on 01/25/2018. We do not have any intervening results for WBC count. Microbiology , we have 2 sets of blood cultures, no growth at [address] of abdomen and pelvis demonstrated anasarca and hematoma adjacent to the caudal aspect of gastric antrum and pylorus in medial aspect of the of the duodenal C loop measuring 11 x 4 x 6 cm. There was no evidence of free air in the intraabdominal area. ASSESSMENT: 1. Coronary disease with bypass graft surgery. 2. End-stage renal disease of uncertain etiology, on hemodialysis, having failed peritoneal dialysis due to continuous ambulatory peritoneal dialysis peritonitis in the past. 3. Hematoma in the gastric wall of uncertain etiology associated with warfarin use, which has been discontinued. 4. Altered mental status. 5. Respiratory distress with tachypnea and evidence of anasarca, possibly related to pulmonary volume overload. DISCUSSION: The patient's neutrophilia is most likely due to the volume overload associated with the anasarca and likely early pulmonary edema. The hemoglobin has not dropped much since admission, so I do not think that the bleeding is contributing to the patient's neutrophilia, an infectious process appears to be less likely, although the blood cultures have not yet been finalized at 48 hours. She does have an elevated BNP and obvious anasarca and I think that is what is contributing to her neutrophilia. She does have an element of ineffective coughing reflex and does not have very deep inspiration and I think she is at risk for aspiration and respiratory failure. I believe that she is a full code at this time and this needs to be clarified, because she may require transfer to IMCU or ICU. Job ID: [id number] [facility]
[2019-12-30 06:22] LABS: INR-International Normal Ratio 2.4; Prothrombin Time 26.2 sec (12.0-14.7)
[2019-12-30 06:36] LABS: Band 18 % (5-11); Eosinophils 1 % (0-10); Hemoglobin 8.4 g/dL (12.0-16.0); Lymphocytes 11 % (21-51); MDiff Complete? YES; Mean Platelet Volume 9.1 fL (7.4-10.4); Monocytes 5 % (0-10); Neutrophil 65 % (42-75); Platelet Count 245 thou/uL (130-400); Platelet Morphology Comment Appears Adequate; RBC Distribution Width 24.3 % (11.5-14.5); Red Blood Cell (RBC) Count 2.71 mill/uL (4.20-5.40); White Blood Cell (WBC) Count 24.4 thou/uL (4.8-10.8)
[2019-12-30 06:50] LABS: Anion Gap 13 mmol/L (10-20); BUN (Urea Nitrogen) 31 mg/dL (9.8-20.1); Calc. Creatinine Clearance 10 mL/min (70-130); Calcium 9.5 mg/dL (7.8-10.44); Carbon Dioxide 26 mmol/L (23-31); Chloride 101 mmol/L (98-107); Estimated GFR-MDRD 10; Glucose 99 mg/dL (83-110); Magnesium 2.3 mg/dL (1.6-2.6); Phosphorus 4.6 mg/dL (2.3-4.7); Sodium 136 mmol/L (136-145)
--- NOTE | 2019-12-30 07:39 | CT ---
PRELIMINARY REPORT/[facility]/EMERGENCY AFTER HOURS PROCEDURE: PROCEDURE: CT Head without Contrast . HISTORY: Altered mental status and confusion. TECHNIQUE: Axial images were performed without the administration of IV contrast with or without mult iplanar reformations . COMPARISON: 12/27/2019. FINDINGS: Brain shows no mass, hemorrhage, or acute stroke. Mild periventricular old microischemic changes. Mild diffuse cerebral and cerebellar atrophy. Ventricles are normal size for patient's age. No acute skull or scalp abnormality. Visualized sinuses and mastoids are clear. IMPRESSION: No acute intracranial abnormality. Senescent changes . ELECTRONICALLY SIGNED BY: Pb Jones MD December 30, 2019 4:30:51 AM CDT FINAL REPORT HEAD CT WITHOUT CONTRAST: HISTORY: Altered mental status. COMPARISON: 12/27/2019. FINDINGS: Hemorrhage: No intraparenchymal hemorrhage or extra-axial hematoma. Brain parenchyma: Cortical gale-white matter differentiation is preserved. No mass effect or midline shift. Basilar cisterns are patent.Chronic small vessel ischemic changes of the white matter. Ventricular system: Ventricles and sulci are patent and symmetric. Calvarium: Intact.. Sinuses and mastoid air cells: Adequate aeration. IMPRESSION: 1. This report is in agreement with the initial report by [facility]. 2. No acute intracranial process. Transcribed Date/Time: 12/30/2019 7:58 AM
[2019-12-30] MEDS: Polyethylene Glycol 3350 17 GM Packet PO SCH (07:50)
[2019-12-30] MEDS: Famotidine 20 MG TAB PO SCH (07:50)
[2019-12-30] MEDS: Carvedilol 3.125 MG TAB PO SCH ×2 (07:50→22:08)
[2019-12-30] MEDS: Allopurinol 100 MG TAB PO SCH (07:50)
[2019-12-30] MEDS: Aspirin 81 mg Enteric Coated Tablet PO SCH (07:50)
[2019-12-30] MEDS: Rosuvastatin 10 MG TAB PO SCH (07:51)
[2019-12-30 08:03] LABS: Vancomycin, Random 16.8 ug/mL (See Comment)
--- NOTE | 2019-12-30 08:31 | PRG ---
DATE OF SERVICE: 12/30/2019 SUBJECTIVE: The patient was seen in dialysis this morning. Still appears very altered and is noncommunicative. OBJECTIVE: VITAL SIGNS: Her temperature is 97.6, pulse in the 60s, respiratory rate in the mid 20s, O2 saturation 94% on 2 L, and blood pressure 99/52. GENERAL: She is quite lethargic, but does look around. HEENT: Otherwise, unremarkable. NECK: No JVD. LUNGS: Clear anteriorly. CARDIAC: S1 and S2. Regular. ABDOMEN: Slightly tender to palpation. EXTREMITIES: No edema. LABORATORY DATA: White blood cell count 24.4, hematocrit 28, and platelet count 245. INR 2.4. Sodium 136, potassium 4, chloride 101, CO2 of 26, BUN 31, creatinine 5.1, glucose 99. ASSESSMENT: 1. Metabolic encephalopathy/altered mental status. 2. Presumed sepsis. 3. Abdominal hematoma. 4. Chronic renal failure. PLAN: She appears stable, but there are many things in her case that remains unexplained to me. I do not know what her baseline mental status is, and I would be quite concerned that she could deteriorate based on what I am seeing. She should remain on the Monitored Unit until her situation has improved. Continue with antibiotics. Job ID: [id number]
[2019-12-30] MEDS ORDERED: Albumin 25% 25 GM/100 ML BOT IVPB ONE (09:02)
--- NOTE | 2019-12-30 09:30 | PRG ---
DATE OF SERVICE: 12/30/2019 SUBJECTIVE: Ms. Talley is a 79-year-old black female with ESRD and was admitted for mental status change. Mentation has not improved. Two CT scans of the brain have been done, which showed no acute intracranial abnormality. An ID consult was done with Dr. Mancera, the feeling is that she may not be septic. We are currently following her up for management of her ESRD. She is undergoing hemodialysis. We are unable to remove much fluid due to the low blood pressure with this patient. I will probably start her on midodrine at 5 mg q.a.m. No other acute events noted except for the unchanged mental status and depression. OBJECTIVE: VITAL SIGNS: Blood pressure is 95/46, heart rate 74, respiratory rate 20, temperature 97.5, O2 saturation 98% on 2 L. GENERAL: The patient is awake, but not verbally responding to my conversation with her. Eyes are spontaneously open. HEENT: Pinkish conjunctivae. Anicteric sclerae. No neck mass. No carotid bruits. No JVD. CHEST: No deformities. LUNGS: Decreased breath sounds. HEART: Normal sinus rhythm. No murmurs, no gallops, no rubs. ABDOMEN: Globular, soft, nontender. No masses. EXTREMITIES: Positive for leg edema. No deformities. MEDICATIONS: Medications of December 30, 2019, reviewed. LABORATORY DATA: Laboratories of December 30, 2019; sodium 136, potassium 4, chloride 101, carbon dioxide 26, BUN 31, creatinine 5.09, phosphorus 4.6, magnesium 2.3, calcium 9.5. White count 24.4, hemoglobin 8.4. ASSESSMENT AND PLAN: 1. Anemia, continuing weekly Epogen. P.r.n. blood transfusion. 2. Mental status change - consider metabolic encephalopathy. CT scan of the brain x2 have shown no acute intracranial abnormality. 3. Leukocytosis - no evidence of any clinical infection. ID following. 4. End-stage renal disease, continuing hemodialysis regimen. Again, fluid removal only as tolerated. Unable to remove fluid with this morning's dialysis due to the low blood pressure. 5. Hypotension. Start midodrine/start albumin infusion. 6. Overall prognosis remains guarded. Job ID: [id number]
[2019-12-30] MEDS: Midodrine HCl 5 MG TAB PO SCH (09:46)
[2019-12-30] MEDS: Dextrose 50% Abboject 50 ML SYRINGE SLOW IVP PRN ×2 (10:04→11:33)
[2019-12-30 10:48] LABS: Actual Bicarbonate (HCO3a) 27.6 mEq/L (22-28); Base Excess (BEa) 3.1 mEq/L (-2.0 to +3.0); CO2 Tension 41.9 mmHg (35.0-45.0); Calcium, Ionized 1.19 mmol/L (1.12-1.30); Carboxyhemoglobin (COHb) 1.7 gm% (0.0-3.0); Hemoglobin (Hb) 9.4 g/dL (12.0-16.0); O2 Tension (PaO2) 79.1 mmHg (> 70.0); pH, Arterial 7.44 (7.35-7.45)
[2019-12-30 11:14] LABS: Puncture Site LB
[2019-12-30 11:15] LABS: ALV-art Gradient 96.685 (0-20)
[2019-12-30] MEDS: Albumin 25% 25 GM/100 ML BOT IVPB SCH ×3 (12:15→23:48)
[2019-12-30] MEDS: Dextrose 5 %-0.45 % NaCl 1,000 ML IV SCH ×2 (12:16→23:53)
--- NOTE | 2019-12-30 12:22 | PDOC.HOSPP ---
- Subjective Encounter Date: 12/30/19 Subjective: NEUROLOGY PROGRESS NOTE Patient continues be lethargic and somnolent. - Objective Vital Signs & Weight: Vital Signs (12 hours) Temp Pulse Resp BP Pulse Ox 12/30/19 07:45 97.5 F L 74 20 95/46 L 98 12/30/19 07:33 94 L 12/30/19 05:35 77 99/52 L 12/30/19 04:00 97.6 F 68 28 H 86/45 L 94 L Weight Admit Weight 154 lb Weight 157 lb 9.6 oz Most Recent Monitor Data Heart Rate from ECG 77 NIBP 108/62 NIBP BP-Mean 77 Respiration from ECG 25 SpO2 98 I&O: 12/29/19 12/30/19 12/31/19 06:59 06:59 06:59 Intake Total 40 Balance 40 Result Diagrams: 12/30/19 06:09 12/30/19 06:09 Additional Labs: Accuchecks 12/30/19 12/30/19 12/30/19 12:06 11:31 10:56 POC Glucose 57 L* 43 L* 69 L 12/30/19 12/30/19 12/30/19 09:44 04:40 00:24 POC Glucose 63 L 246 H 80 12/29/19 12/29/19 12/29/19 20:36 18:08 12:23 POC Glucose 85 93 64 L Radiology Reviewed by me: Yes EKG Reviewed by me: Yes Hospitalist ROS - Review of Systems ROS unobtainable: due to mental status - Medication Medications: Active Medications Generic Name Dose Route Start Last Admin Trade Name Conchita PRN Reason Stop Dose Admin Acetaminophen 650 mg 12/27/19 21:16 12/27/19 23:17 Tylenol PO 650 mg Q4H PRN Administration Headache/Fever/Mild Pain (1-3) Acetaminophen 650 mg 12/29/19 22:25 12/29/19 22:53 Tylenol [place] 650 mg Q4H PRN Administration Headache/Fever or Pain Hydrocodone Bitart/Acetaminophen 1 tab 12/27/19 21:16 12/28/19 10:28 [place] 5/325 PO 1 tab Q4H PRN Administration Moderate Pain (4-6) Albumin Human 25 gm 12/30/19 10:00 12/30/19 12:15 Albumin 25% IVPB 12/31/19 04:01 25 gm Q6H ANA PAULA Administration Albuterol/Ipratropium 3 ml 12/27/19 21:23 12/29/19 22:25 Duoneb NEB 3 ml Q2H PRN Administration SOB &/or Wheezing Allopurinol 100 mg 12/28/19 09:00 12/30/19 07:50 Zyloprim PO Not Given DAILY ANA PAULA Aspirin 81 mg 12/28/19 09:00 12/30/19 07:50 Ecotrin PO Not Given DAILY ANA PAULA Carvedilol 3.125 mg 12/28/19 21:00 12/30/19 07:50 Coreg PO Not Given BID ANA PAULA Dextrose/Water 25 gm 12/28/19 16:44 12/30/19 11:33 Dextrose 50% SLOW IVP 25 gm PRN PRN Administration Hypoglycemia Epoetin Valdemar-epbx 7,500 unit 12/28/19 12:00 12/28/19 16:16 Retacrit SC 7,500 unit Q7D ANA PAULA Administration Famotidine 20 mg 12/28/19 09:00 12/30/19 07:50 Pepcid PO Not Given QAM ANA PAULA Cefepime HCl 2 gm/ Sodium 100 mls @ 200 mls/hr 12/29/19 09:00 12/29/19 07:51 Chloride IVPB 100 mls Q2DAYS ANA PAULA Administration Vancomycin HCl 250 mg/ Sodium 100 mls @ 100 mls/hr 12/28/19 09:00 12/30/19 09 :40 Chloride IVPB 100 mls WILLCALL ANA PAULA Administration Dextrose/Sodium Chloride 1,000 mls @ 75 mls/hr 12/29/19 09:00 12/30/19 12:16 D5 1/2 Ns IV 1,000 mls .[id number] ANA PAULA Administration Midodrine 5 mg 12/30/19 09:00 12/30/19 09:46 Proamatine PO Not Given QAM ANA PAULA Polyethylene Glycol 17 gm 12/28/19 09:00 12/30/19 07:50 Miralax PO Not Given DAILY ANA PAULA Rosuvastatin Calcium 10 mg 12/28/19 09:00 12/30/19 07:51 Crestor PO Not Given DAILY ANA PAULA Sodium Chloride 10 ml 12/28/19 09:00 12/30/19 10:05 Flush - Normal Saline IVF 10 ml Q12HR ANA PAULA Administration - Exam General Appearance: ill appearing Eye: PERRL ENT: normocephalic atraumatic, no oropharyngeal lesions, moist mucosa Neck: symmetric Heart: RRR Respiratory: CTAB Gastrointestinal: soft Extremities: no cyanosis Skin: normal turgor Neurological: no focal deficits, no new deficit Neurological - other findings: pupils equal and reactive, corneals and cough positive Musculoskeletal: normal tone Musculoskeletal - other findings: Withdraws to nail bed pressure . Reflexes symmetric Psychiatric: somnolent, lethargic Hosp A/P (1) Altered mental status Code(s): R41.82 - ALTERED MENTAL STATUS, UNSPECIFIED Status: Acute (2) Labile hypertension Code(s): I10 - ESSENTIAL (PRIMARY) HYPERTENSION Status: Acute (3) Peritonitis associated with peritoneal dialysis Status: Acute (4) Sick sinus syndrome Code(s): I49.5 - SICK SINUS SYNDROME Status: Acute (5) Stroke Code(s): I63.9 - CEREBRAL INFARCTION, UNSPECIFIED Status: Acute (6) ESRD (end stage renal disease) on dialysis Code(s): N18.6 - END STAGE RENAL DISEASE; Z99.2 - DEPENDENCE ON RENAL DIALYSIS Status: Chronic (7) HTN (hypertension) Code(s): I10 - ESSENTIAL (PRIMARY) HYPERTENSION Status: Chronic (8) Renal failure Status: Chronic - Plan old records reviewed/req, PT/OT, speech therapy, DVT proph w/SCDs 79 year old consulted for altered mental status. Altered mental status seems multifactorial which includes infectious, metabolic etiologies. Intracranial process is low on the differential.. Head CT from yesterday reviewed which did not reveal any acute intracranial pathology. EEG reviewed which did not reveal any seizure activity or presence of interictal epileptiform discharges. Repeat Head CT today 48 hours after symptom onset to rule out stroke Neurochecks every 4 hours. Continue home medications. Continue medical management per primary team. Continue supportive measures. Plan discussed with the primary hospitalist.
--- NOTE | 2019-12-30 13:23 | PDOC.HOSPP ---
- Subjective Encounter Date: 12/30/19 Encounter Time: 10:50 Subjective: pt on bipap, aborted HD d/t low BP, pt AOx 0, talk to charge nurse. - Objective Vital Signs & Weight: Vital Signs (12 hours) Temp Pulse Resp BP Pulse Ox 12/30/19 12:33 77 12/30/19 07:45 97.5 F L 74 20 95/46 L 98 12/30/19 07:33 94 L 12/30/19 05:35 77 99/52 L 12/30/19 04:00 97.6 F 68 28 H 86/45 L 94 L Weight Admit Weight 154 lb Weight 157 lb 9.6 oz Most Recent Monitor Data Heart Rate from ECG 80 NIBP 125/80 NIBP BP-Mean 95 Respiration from ECG 36 SpO2 94 I&O: 12/29/19 12/30/19 12/31/19 06:59 06:59 06:59 Intake Total 40 Balance 40 Result Diagrams: 12/30/19 06:09 12/30/19 06:09 Additional Labs: Accuchecks 12/30/19 12/30/19 12/30/19 12:29 12:06 11:31 POC Glucose 38 L* 57 L* 43 L* 12/30/19 12/30/19 12/30/19 10:56 09:44 04:40 POC Glucose 69 L 63 L 246 H 12/30/19 12/29/19 12/29/19 00:24 20:36 18:08 POC Glucose 80 85 93 Hospitalist ROS - Medication Medications: Active Medications Generic Name Dose Route Start Last Admin Trade Name Freq PRN Reason Stop Dose Admin Acetaminophen 650 mg 12/27/19 21:16 12/27/19 23:17 Tylenol PO 650 mg Q4H PRN Administration Headache/Fever/Mild Pain (1-3) Acetaminophen 650 mg 12/29/19 22:25 12/29/19 22:53 Tylenol [place] 650 mg Q4H PRN Administration Headache/Fever or Pain Hydrocodone Bitart/Acetaminophen 1 tab 12/27/19 21:16 12/28/19 10:28 [place] 5/325 PO 1 tab Q4H PRN Administration Moderate Pain (4-6) Albumin Human 25 gm 12/30/19 10:00 12/30/19 12:15 Albumin 25% IVPB 12/31/19 04:01 25 gm Q6H ANA PAULA Administration Albuterol/Ipratropium 3 ml 12/27/19 21:23 12/29/19 22:25 Duoneb NEB 3 ml Q2H PRN Administration SOB &/or Wheezing Allopurinol 100 mg 12/28/19 09:00 12/30/19 07:50 Zyloprim PO Not Given DAILY ANA PAULA Aspirin 81 mg 12/28/19 09:00 12/30/19 07:50 Ecotrin PO Not Given DAILY ANA PAULA Carvedilol 3.125 mg 12/28/19 21:00 12/30/19 07:50 Coreg PO Not Given BID ANA PAULA Dextrose/Water 25 gm 12/28/19 16:44 12/30/19 11:33 Dextrose 50% SLOW IVP 25 gm PRN PRN Administration Hypoglycemia Epoetin Valdemar-epbx 7,500 unit 12/28/19 12:00 12/28/19 16:16 Retacrit SC 7,500 unit Q7D ANA PAULA Administration Famotidine 20 mg 12/28/19 09:00 12/30/19 07:50 Pepcid PO Not Given QAM ANA PAULA Cefepime HCl 2 gm/ Sodium 100 mls @ 200 mls/hr 12/29/19 09:00 12/29/19 07:51 Chloride IVPB 100 mls Q2DAYS ANA PAULA Administration Vancomycin HCl 250 mg/ Sodium 100 mls @ 100 mls/hr 12/28/19 09:00 12/30/19 09 :40 Chloride IVPB 100 mls WILLCALL ANA PAULA Administration Dextrose/Sodium Chloride 1,000 mls @ 75 mls/hr 12/29/19 09:00 12/30/19 12:16 D5 1/2 Ns IV 1,000 mls .[id number] ANA PAULA Administration Midodrine 5 mg 12/30/19 09:00 12/30/19 09:46 Proamatine PO Not Given QAM ANA PAULA Polyethylene Glycol 17 gm 12/28/19 09:00 12/30/19 07:50 Miralax PO Not Given DAILY ANA PAULA Rosuvastatin Calcium 10 mg 12/28/19 09:00 12/30/19 07:51 Crestor PO Not Given DAILY ANA PAULA Sodium Chloride 10 ml 12/28/19 09:00 12/30/19 10:05 Flush - Normal Saline IVF 10 ml Q12HR ANA PAULA Administration - Exam General Appearance: ill appearing General - other findings: bipap Eye: PERRL Neck: supple Heart: RRR Respiratory: no wheezes, no ronchi, normal chest expansion Gastrointestinal: soft Neurological: no new deficit Psychiatric: not oriented Hosp A/P - Plan 79 year old female with PMH coronary artery disease, diverticulosis, pancreatitis, hyperlipidemia, history of malignancy, primary site breast, treated with surgery, osteoarthritis, polymyalgia rheumatica, end stage renal disease admitted for: # L arm nonocclusive thrombus with swelling of affected arm with hx of breast cancer -- lymphaedema # intrabdominal hematoma - reported by radiology on prelimary read, hold anticoagulation for now and monitor hemoglobin, transfuse for hgb <7 - follow final radiology read of CT # sepsis due to unknown source - elevated WBC, will admit and send blood cultures and defer to nephrology for further workup, Dr Canales consulted, empiric vancomycin and cefepime started # Altered mental status, slurred speech - appears more delirium than slurred speech of a focal neurologic defecit type. will monitor clinically for worsening neurologic symptoms. MRI would help but patient has pacemaker # ESRD - permcath, consutl Dr Canales for HD inpatient # history of CAD - no chest pain or STEMI, continue home medications # history of pancreatitis, elevated lipase - presentation not consistent with pancreatitis, follow final abdominal CT read # hisotry of breast cancer - recommend outpatient follow up # elevated D dimer - presentation not consitent with PE, more likely from the clots and hematoma noted on imaging tried to call [facility] at [phone] -- busy dial. 6th [facility] from [facility] as she was admitted there for peritonitis and lengthy abx coverage. Persistent leukocytosis --bl adalid -- neg so far --vanc + cefepime --as still high wbcs, ID consulted metabolic encephalopathy --unlikely any other source for her mentation -repeat CT head tomorr -EEG -------> metab..encephalopathy -appreciate help from neuro. Hypotension -w ith change in BP cuff, BP looks acceptable can transfer back to the floor. 7th i dont think AC is necesary for superficial thrombophlebitis as high risk pt with abd hemorrhage - specifically 8.6 cm in size, inf.. to gastric anturn amd medial to duodeum and small focus inferior to pylorus will check w.. Haem. CT head --no acuity. - pt has overall poor prognosis - Hemodynamic lability DNAR.
--- NOTE | 2019-12-30 14:55 | PDOC.PALCO ---
Palliative Care Consult - Consult Details Requesting Physician: Dr Dumont Reason for Consult: goals of care, advance directives assistance, family support - Pertinent HPI 79 year old female recent discharged from [place] and [place] to the [facility]. Onset of slurred speech at [facility], known history of TIA/CVA. Transferred to [facility] emergency room for evaluation. Admitted for non occlusive thrombus of left arm, intrabdominal hematoma, sepsis, altered mental status. Initially admitted to Telemetry, transferred to IMCU for higher level of care related to increase in confusion and respiratory distress. - Allergies Allergies/Adverse Reactions: Allergies Allergy/AdvReac Type Severity Reaction Status Date / Time celecoxib [From Celebrex] Allergy Verified 12/28/19 08:49 lisinopril Allergy Verified 12/27/19 21:08 - Objective Vital Signs: Vital Signs - Most Recent Temp Pulse Resp BP Pulse Ox 97.5 F L 77 20 95/46 L 98 12/30/19 07:45 12/30/19 12:33 12/30/19 07:45 12/30/19 07:45 12/30/19 07:45 - Plan/Recommendations Plan: Daughter who is MPOA confirmed no resuscitation measures, patient had prior DNAR in place. Will wait and see how Mrs Talley does over the next 24 hours and family will address Goal of Care depending on opportunity for meaningful recovery. Family open to hospice to provide comfort at the end of life in lieu of aggressive measures. Please also refer to Ralph Lilly car dropper notes in note section [50] minutes spent on this encounter with >50% of the time in counseling and coordination of care. Thank you for this very appropriate consult.
[2019-12-30] MEDS ORDERED: Midodrine HCl 5 MG TAB PO SCH (15:00)
[2019-12-30] MEDS ORDERED: Heparin 10,000 UNITS/ 10 ML VIAL FS SCH (17:00)
--- NOTE | 2019-12-30 17:20 | PRG ---
DATE OF SERVICE: 12/30/2019 SUBJECTIVE: Ms. Talley has been transferred to the [facility]. She is on a BiPAP ventilatory support. She is still delirious and not able to interact with the examiner. T-max is 97.8. The nurse stated that she had a low-grade temperature elevation earlier, but this does not seem to be recorded. Pulse is 81. They try to dialyze her today, but could not because of perceived hypotension, most likely there was not true hypotension, but just a technical issue in association with her vascular disorder. Now, her blood pressure has been measured more accurately. We have clear-cut values ranging from 120/80 to 145/60. She opens her eyes, but does not follow commands. She has not had diarrhea. OBJECTIVE: LUNGS: Symmetric air entry. Anasarca. HEART: S1 and S2. Regular rate. Dialysis catheter. ABDOMEN: Soft, not distended. No peritoneal abnormalities. NEURO: She has muscle tone, but does not follow commands. LABORATORY DATA: White cell count is 24,000 and hemoglobin 8.4. Now, she has a bandemia of 18% and creatinine is 5.09. Two sets of blood cultures, no growth and she is now a do not intubate status. She had a repeat brain CT and did not show any changes. ASSESSMENT AND DISCUSSION: Coronary artery disease, bypass graft surgery, end-stage renal disease of uncertain etiology, on hemodialysis, having failed PD due to infection. Hematoma gastric wall associated with warfarin use, which has been discontinued. Altered mental status due to toxic metabolic encephalopathy, respiratory distress, tachypnea, evidence of anasarca, possible aspiration with pneumonia. The patient is currently continues on broad-spectrum coverage and prognosis is poor and we will continue current measures. Job ID: [id number]
[2019-12-30 19:54] VITALS: BP 140/67
[2019-12-31] MEDS: Albumin 25% 25 GM/100 ML BOT IVPB SCH (06:29)
--- NOTE | 2019-12-31 08:22 | PRG ---
DATE OF SERVICE: 12/31/2019 SUBJECTIVE: This patient was transferred to the [facility] yesterday after dialysis because of lethargy and respiratory distress. This morning, I find her noncommunicative, but that is not different than the last 2 days. Palliative Care is met with the family and reconfirmed a previous DNAR. OBJECTIVE: VITAL SIGNS: Temperature 97.2, pulse 86, blood pressure 150/52, and O2 saturation 100%. HEENT: Would not open eyes. Oropharynx covered with BiPAP mask. NECK: No adenopathy or JVD. LUNGS: Coarse breath sounds. CARDIAC: S1 and S2. Tachycardic. ABDOMEN: Soft. EXTREMITIES: Edematous. LABORATORY DATA: No new labs were obtained today. ASSESSMENT: 1. Severe debilitation - multifactorial in nature. 2. Chronic renal failure requiring hemodialysis. 3. Abdominal hematoma. RECOMMENDATIONS: It seems very unlikely that this patient will improve. Even with aggressive care, we have seen a continued decline in her condition. I would continue her antibiotics as you are doing. I would suggest discussing palliative measures with the family and perhaps transitioning to hospice care. Job ID: [id number]
[2019-12-31] MEDS: Midodrine HCl 5 MG TAB PO SCH (09:27)
[2019-12-31] MEDS: Aspirin 81 mg Enteric Coated Tablet PO SCH (09:27)
[2019-12-31] MEDS: Famotidine 20 MG TAB PO SCH (09:27)
[2019-12-31] MEDS: Carvedilol 3.125 MG TAB PO SCH (09:27)
[2019-12-31] MEDS: Polyethylene Glycol 3350 17 GM Packet PO SCH (09:27)
[2019-12-31] MEDS: Allopurinol 100 MG TAB PO SCH (09:27)
[2019-12-31] MEDS: Rosuvastatin 10 MG TAB PO SCH (09:28)
--- NOTE | 2019-12-31 09:50 | PRG ---
DATE OF SERVICE: 12/31/2019 SERVICE: Renal Medicine. SUBJECTIVE: Ms. Talley is a 79-year-old black female with ESRD and currently on maintenance hemodialysis. Yesterday's dialysis treatment was cut short due to hemodynamic instability with the patient. She has remained unresponsive and not following verbal commands. Previous imaging of the brain x2 was negative. The family is considering hospice care. We are awaiting for final decision. She has persistent leukocytosis. She has been treated with IV antibiotics. OBJECTIVE: VITAL SIGNS: Blood pressure is 150/52, heart rate 79, respiratory rate is 32. GENERAL: Patient is unresponsive, on BiPAP. HEENT: Slightly pale conjunctivae. Anicteric sclerae. No neck mass. No carotid bruits. No JVD. CHEST: No deformities. LUNGS: Decreased breath sounds. HEART: Normal sinus rhythm. No murmur. No gallops. No rubs. ABDOMEN: Globular, soft, nontender. No masses. EXTREMITIES: No edema. LABORATORY DATA: Blood culture on December 27, 2019; no growth to date. December 30, 2019; white count 24.4, hemoglobin 8.4. December 31, 2019; glucose 120. December 30, 2019; BUN 31, creatinine 5.09, potassium 4. ASSESSMENT AND PLAN: 1. End-stage renal disease-on maintenance hemodialysis. Continuing 3 times a week hemodialysis on Friday, , and Friday. 2. Unresponsiveness/metabolic encephalopathy. The patient has not been mentating well and is not responsive. Family considering withdrawal of care. For the moment, agree with supportive care. We will await for the final decision. Job ID: [id number]
[2019-12-31] MEDS: Cefepime 2 GM in Sodium Chloride 0.9% 100 ML IVPB SCH (10:10)
[2019-12-31 11:09] VITALS: TEMP 97
--- NOTE | 2019-12-31 11:32 | PDOC.HOSPP ---
- Subjective Encounter Date: 12/31/19 Subjective: NEUROLOGY PROGRESS NOTE Patient continues to be somnolent and unresponsive. - Objective Vital Signs & Weight: Vital Signs (12 hours) Temp Pulse Pulse Ox 12/31/19 11:09 97.0 F L 12/31/19 08:00 97 12/31/19 07:14 97.2 F L 12/31/19 07:08 79 98 12/31/19 03:41 98.7 F Weight Admit Weight 154 lb Weight 162 lb 11.218 oz Most Recent Monitor Data Heart Rate from ECG 79 NIBP 162/69 NIBP BP-Mean 100 Respiration from ECG 33 SpO2 100 I&O: 12/30/19 12/31/19 01/01/20 06:59 06:59 06:59 Intake Total 1580 Output Total 0 Balance 1580 Result Diagrams: 12/30/19 06:09 12/30/19 06:09 Additional Labs: Accuchecks 12/31/19 12/31/19 12/30/19 08:08 03:53 23:37 POC Glucose 120 H 110 126 H 12/30/19 12/30/19 12/30/19 20:12 15:45 12:29 POC Glucose 99 133 H 38 L* 12/30/19 12/30/19 12:06 11:31 POC Glucose 57 L* 43 L* Radiology Reviewed by me: Yes EKG Reviewed by me: Yes Hospitalist ROS - Review of Systems ROS unobtainable: due to mental status Neurological: reports: confusion - Medication Medications: Active Medications Generic Name Dose Route Start Last Admin Trade Name Freq PRN Reason Stop Dose Admin Acetaminophen 650 mg 12/27/19 21:16 12/27/19 23:17 Tylenol PO 650 mg Q4H PRN Administration Headache/Fever/Mild Pain (1-3) Acetaminophen 650 mg 12/29/19 22:25 12/29/19 22:53 Tylenol RI 650 mg Q4H PRN Administration Headache/Fever or Pain Hydrocodone Bitart/Acetaminophen 1 tab 12/27/19 21:16 12/28/19 10:28 [place] 5/325 PO 1 tab Q4H PRN Administration Moderate Pain (4-6) Albuterol/Ipratropium 3 ml 12/27/19 21:23 12/29/19 22:25 Duoneb NEB 3 ml Q2H PRN Administration SOB &/or Wheezing Allopurinol 100 mg 12/28/19 09:00 12/31/19 09:27 Zyloprim PO Not Given DAILY [facility] Aspirin 81 mg 12/28/19 09:00 12/31/19 09:27 Ecotrin PO Not Given DAILY [facility] Carvedilol 3.125 mg 12/28/19 21:00 12/31/19 09:27 Coreg PO Not Given BID ANA PAULA Dextrose/Water 25 gm 12/28/19 16:44 12/30/19 11:33 Dextrose 50% SLOW IVP 25 gm PRN PRN Administration Hypoglycemia Epoetin Valdemar-epbx 7,500 unit 12/28/19 12:00 12/28/19 16:16 Retacrit SC 7,500 unit Q7D ANA PAULA Administration Famotidine 20 mg 12/28/19 09:00 12/31/19 09:27 Pepcid PO Not Given QAM ANA PAULA Cefepime HCl 2 gm/ Sodium 100 mls @ 200 mls/hr 12/29/19 09:00 12/31/19 10:10 Chloride IVPB Not Given Q2DAYS ANA PAULA Vancomycin HCl 250 mg/ Sodium 100 mls @ 100 mls/hr 12/28/19 09:00 12/30/19 09 :40 Chloride IVPB 100 mls WILLCALL ANA PAULA Administration Dextrose/Sodium Chloride 1,000 mls @ 75 mls/hr 12/29/19 09:00 12/30/19 23:53 D5 1/2 Ns IV 1,000 mls .[id number] ANA PAULA Administration Midodrine 5 mg 12/30/19 09:00 12/31/19 09:27 Proamatine PO Not Given QAM [facility] Polyethylene Glycol 17 gm 12/28/19 09:00 12/31/19 09:27 Miralax PO Not Given DAILY [facility] Rosuvastatin Calcium 10 mg 12/28/19 09:00 12/31/19 09:28 Crestor PO Not Given DAILY [facility] Sodium Chloride 10 ml 12/28/19 09:00 12/31/19 10:10 Flush - Normal Saline IVF Not Given Q12HR ANA PAULA - Exam General Appearance: ill appearing Eye: PERRL ENT: normocephalic atraumatic Neck: supple Heart: RRR Respiratory: CTAB Gastrointestinal: soft Extremities: no cyanosis Skin: normal turgor, no lesions, no rashes Neurological: no focal deficits Musculoskeletal - other findings: withdraws to nailbed pressure Psychiatric: somnolent, lethargic Hosp A/P (1) Altered mental status Code(s): R41.82 - ALTERED MENTAL STATUS, UNSPECIFIED Status: Acute (2) Labile hypertension Code(s): I10 - ESSENTIAL (PRIMARY) HYPERTENSION Status: Acute (3) Peritonitis associated with peritoneal dialysis Status: Acute (4) Sick sinus syndrome Code(s): I49.5 - SICK SINUS SYNDROME Status: Acute (5) Stroke Code(s): I63.9 - CEREBRAL INFARCTION, UNSPECIFIED Status: Acute (6) ESRD (end stage renal disease) on dialysis Code(s): N18.6 - END STAGE RENAL DISEASE; Z99.2 - DEPENDENCE ON RENAL DIALYSIS Status: Chronic (7) HTN (hypertension) Code(s): I10 - ESSENTIAL (PRIMARY) HYPERTENSION Status: Chronic (8) Renal failure Status: Chronic - Plan old records reviewed/req 79 year old consulted for altered mental status. Altered mental status seems multifactorial which includes infectious, metabolic etiologies. Intracranial process seems unlikely due to negative HCT and EEG. Recent Head CT reviewed which did not reveal any acute intracranial pathology. EEG reviewed which did not reveal any seizure activity or presence of interictal epileptiform discharges. Neurochecks every 4 hours. Continue home medications. Continue medical management per primary team. Continue supportive measures. No further recommendations from neurology stand point.
--- NOTE | 2019-12-31 16:58 | DIS ---
DATE OF ADMISSION: 12/28/2019 DATE OF DISCHARGE: 12/31/2019 DISCHARGE DIAGNOSES: 1. Metabolic encephalopathy that did not resolve. 2. Left arm nonocclusive thrombus with superficial thrombophlebitis. 3. Intra-abdominal hematoma, specifically 8.6 cm in size inferior to gastric antrum and medial to the duodenum as well as small focus inferior to pylorus. 4. History of breast cancer, pancreatic disease, history of coronary artery disease. 5. End-stage renal disease, on hemodialysis, follows with Dr. Canales. 6. Dysarthria. 7. Sepsis with unknown source/cultures negative. 8. Polymyalgia rheumatica. 9. Hypertension with [id number] blood pressure mostly on the low side. DISCHARGE MEDICATIONS: 1. Aspirin 81 mg daily. 2. Dulcolax as needed. 3. Coreg 3.125 twice a day. 4. Amiodarone 200 mg daily. 5. Marinol. PHYSICAL EXAMINATION: VITAL SIGNS: On the day of discharge, temperature 97, pulse 79, blood pressure 162/69, saturating 100% with 3 L oxygen and she is on a CPAP. Her respiratory rate is quite high around 36. GENERAL: She is alert and oriented x0. She looks very fatigued and somnolent. CARDIOVASCULAR: Irregular rate. Regular rhythm. LUNGS: With anterior auscultation I heard some wheezing and some rales as well. ABDOMEN: Soft, nontender, nondistended. Good bowel sounds. EXTREMITIES: Show trace pitting edema both in upper and lower extremities. NEUROLOGIC: She is alert, oriented x0. HOSPITAL COURSE: A 79-year-old female with a history of coronary artery disease ; end-stage renal disease, on hemodialysis; polymyalgia rheumatica; admitted with metabolic encephalopathy as well as sepsis with unknown source and elevated white count. Her blood cultures were negative for 48 hours. She was given empiric antibiotics of vancomycin as well as cefepime. Regarding her left arm nonocclusive thrombus, it is mostly in the superficial area and also she has some lymphedema, possibly secondary to history of breast cancer. Anticoagulation is not recommended due to superficial thrombophlebitis. Also, she has intra-abdominal hematoma discussed as above. She is not anticoagulated here even though she was on warfarin at home. Regarding her metabolic encephalopathy, she had slurred speech initially, was alert, oriented, but over the course of the hospital stay, her mentation declined to a level that she was not responding much. Neurology did follow with us and CT scan did not show any acute intracranial abnormality. She also had an electroencephalogram consistent with moderate generalized nonspecific cerebral dysfunction. No epileptiform abnormality noted. Given her overall poor prognosis, Palliative was consulted. I talked to the daughter, Ms. Sims few times. She is very understanding about mother's overall prognosis. Comfortable in changing the code to DNAR. Today, the patient is going home with home hospice. Again, I had extensive conversation with the daughter. They understand that the mother's prognosis is quite poor and demise is expected as the natural course dictates. DISCHARGE INSTRUCTIONS: ACTIVITY: As tolerated. DIET: Regular diet for pleasure. DISCHARGE TIME: Discharge time took over 30 minutes. Job ID: [id number] MTDD
--- NOTE | 2020-01-02 16:10 | EKG ---
Test Reason : Blood Pressure : / mmHG Vent. Rate : 074 BPM Atrial Rate : 068 BPM P-R Int : 000 ms QRS Dur : 180 ms QT Int : 480 ms P-R-T Axes : 089 -65 105 degrees QTc Int : 532 ms AV dual-paced rhythm with occasional ventricular-paced complexes and with occasional Premature ventri cular complexes Abnormal ECG When compared with ECG of 27-DEC-2019 15:34, (Unconfirmed) Premature ventricular complexes are now Present Vent. rate has decreased BY 5 BPM Confirmed by SUSAN RUFFIN (2) on 01/02/2020 4:10:14 PM Referred By: KANE Confirmed By:SUSAN RUFFIN
== END 2019-12-31 14:55 | disposition hospice, home (50) | DRG 871 ==
LOC: ERS 15:21 → 2SE 18:31 → INTOOBSV 18:31 → OBSVTOIN 12-28 12:18 → IMCU/EMU 12-28 20:02 → 2SE 12-29 14:51 → IMCU/EMU 12-30 11:32
PROVIDERS: ADMIT Internal Medicine; ATTEND Internal Medicine
PROC: 5A1D70Z Performance of Urinary Filtration, Intermittent, Less than 6 Hours Per Day (ICD-10-PCS; principal; 2019-12-29)
DX: A41.9 Sepsis, unspecified organism (principal); N18.6 End stage renal disease; G93.41 Metabolic encephalopathy; J69.0 Pneumonitis due to inhalation of food and vomit; I82.612 Acute embolism and thrombosis of superficial veins of left upper extremity; I12.0 Hypertensive chronic kidney disease with stage 5 chronic kidney disease or end stage renal disease; Z51.5 Encounter for palliative care; Z66 Do not resuscitate; I25.10 Atherosclerotic heart disease of native coronary artery without angina pectoris; E78.5 Hyperlipidemia, unspecified; M19.90 Unspecified osteoarthritis, unspecified site; M35.3 Polymyalgia rheumatica; M79.81 Nontraumatic hematoma of soft tissue; R79.89 Other specified abnormal findings of blood chemistry; I89.0 Lymphedema, not elsewhere classified; D64.9 Anemia, unspecified; R47.81 Slurred speech; T45.515A Adverse effect of anticoagulants, initial encounter; R06.82 Tachypnea, not elsewhere classified; I49.5 Sick sinus syndrome; R53.81 Other malaise; E87.70 Fluid overload, unspecified; G93.89 Other specified disorders of brain; R47.1 Dysarthria and anarthria; Z85.3 Personal history of malignant neoplasm of breast; Z90.49 Acquired absence of other specified parts of digestive tract; Z95.1 Presence of aortocoronary bypass graft; Z90.710 Acquired absence of both cervix and uterus; Z90.11 Acquired absence of right breast and nipple; Z79.01 Long term (current) use of anticoagulants; Z86.73 Personal history of transient ischemic attack (TIA), and cerebral infarction without residual deficits
CPT/HCPCS: 36415; 36416; 70450; 71045; 74176; 80048; 80202; 82140; 82550; 82805; 83605; 83690; 83735; 83880; 84100; 84484; 85025; 85379; 85610; 85730; 87040; 93005; 93010; 94640; 94660; 95712; 95816; 95819; 95957; 96361; 96365; 96366; 96367; A4353; J0692; J1642; J1644; J3370; J3490; J7030; J7620; P9047; Q5105